=== PATIENT | male | born 1940 | race Caucasian/White ===

== ENCOUNTER 2018-12-09 12:33 | Inpatient (IN) | payer OTHER, SELFPAY ==
[2018-12-09] VITALS (22 sets, daily range): BP systolic 97–195; BP diastolic 49–76; PULSE 65–106; RESP 7–28; TEMP 37.7–40.5; O2SAT 3–96
--- NOTE | 2018-12-09 13:04 | W.ED.GENAD ---
Discharge Plan Disposition Condition: Critical Discharge Details Chief Complaint: RespSymp Reason For Visit: PNEUMONIA Admit Date/Time: 12/09/18 18:18 Admit Provider: Tre Mcneal Attending Provider: Tre Mcneal Primary Care Provider: Ashleigh,[facility] ED Provider: Ca Palencia Discharge Instructions Activity:: bedrest Diet:: NPO Discharge Orders Discharge Orders: Discharge Order (Routine); Ordered 12/11/18 Ordered By: Rosa M Argueta Discharge Data Discharge Date/Time-TO BE ENTERED AT DEPARTURE: 12/09/18 20:01 Medical Decision Making Philip Whiteside is a 78-year-old man with a history of 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 chemotherapy, hypertension, hyperlipidemia presenting to the emergency department with 3 days of chills, sore throat, cough, and loss of voice. On exam patient appears somewhat uncomfortable. He is hoarse but otherwise conversing normally. Lungs with coarse breath sounds throughout. Posterior pharynx is mildly erythematous. Concern for strep throat versus influenza versus pneumonia less likely epiglottitis, retropharyngeal abscess given immune compromised state, other. Doubt PE. Exam/history not consistent with acute coronary syndrome. Plan for chest x-ray, screening labs, flu swab, rapid strep, IV fluid hydration, CT scan neck. Chest x-ray not definitive. No priors in system, no priors at [facility]. Plan for CT neck, CT chest. Flu neg. Patient now febrile. Plan for empiric abx treatment for pneumonia, no recent hospitalizations. Imaging pending. CT shows PNA. Plan for admission. Pt reporting that he feels unchanged, however Pt with RR in low 20s which is increased from prior. Will repeat duoneb. Concern for possible increased O2 demand overnight, plan for admission to ICU. Medical Records Medical records reviewed: Yes I reviewed the patient's medical records. Imaging Data Radiologic Study: Attestation: I personally reviewed and interpreted this imaging study as follows: Radiologist's impression: CT OF THE NECK: A small mucous retention cyst is seen in the right maxillary sinus. No tonsillar enlargement is seen. The epiglottis is unremarkable. There is no retropharyngeal abscess or fluid collection. The thyroid, submandibular and parotid glands are unremarkable. Small cervical lymph nodes are seen, not pathologically enlarged. IMPRESSION: Sinus disease. No acute abnormality. CHEST CT FOR PULMONARY EMBOLISM: CT angiography was performed with multi slice acquisition and multi planar and 3D reconstruction. The exam is limited by respiratory motion. There are small bilateral pleural effusions, right greater than left. There is increased densities at the left lung base which could represent pneumonia. Other densities are seen in the right middle lobe which could represent atelectasis vs infiltrate. Dependent changes are seen in the right lung base. There is a mass in the right perihilar region measuring 3.5 cm. The patient has a history of lung cancer. No pulmonary emboli or aortic dissection is seen. Atherosclerotic changes are noted in the thoracic aorta. The heart is enlarged, particularly left atrium and left ventricle. Large abnormal liver lesions are seen consistent with metastatic disease. A cyst is noted at the upper pole of the right kidney. The adrenals are unremarkable but not fully included on the exam. IMPRESSION: No evidence of pulmonary emboli. There is a question of a left lower lobe infiltrate. There are small bilateral pleural effusions. A left perihilar mass is noted. Liver metastases are seen. Lab Data Lab results reviewed: Yes I reviewed the patient's lab results. HPI General Mode of arrival: ambulatory. Date/Time Provider Initiated Documentation: 12/09/18 13:04. Limitations to Documentation: no limitations. Information obtained by: patient, family, RN notes reviewed and old records reviewed. HPI Narrative: Philip Whiteside is a 78 y/o man with history of primary lung cancer cancer metastatic to the liver, hypertension, high cholesterol presenting to the emergency department with sore throat, cough. Patient reports that 3 days ago he developed sore throat with loss of voice (laryngitis) and intermittent chills. He has also had productive cough. Patient reports that he feels that he needs to cough up phlegm all the time, but is unable to because his throat hurts. He has pain with swallowing, but has been able to swallow. Has not had any drooling. Has been able to lie flat at home without issue. He has had no other pain, no fevers, no nausea/vomiting/diarrhea, no shortness of breath. Patient is currently receiving p.o. chemotherapy for lung cancer. No other recent illnesses, no recent travel. Related Data Home Medications Medication Instructions Recorded Confirmed albuterol sulfate 2.5 mg UPD Q2H PRN PRN #0 ml 12/11/18 cefepime 2 gm IV Q24H #1 each 12/11/18 enoxaparin [Lovenox] 30 mg SUBCUT Q24H #0 ml 12/11/18 fluconazole in NaCl (iso-osm) 100 mg IV Q24H #50 ml 12/11/18 ipratropium-albuterol 3 ml UPD Q6H PRN PRN #0 ml 12/11/18 levofloxacin 250 mg PO Q48H #100 ml 12/11/18 methylprednisolone sod suc(PF) 60 mg IVP Q6H #0 ea 12/11/18 [Solu-Medrol (PF)] norepinephrine bitartrate-D5W See Rx Instructions .ROUTE 12/11/18 .COMPLEX #6000 ml oseltamivir [Tamiflu] 30 mg FEEDING TUBE DAILY #0 cap 12/11/18 pantoprazole [Protonix] 40 mg IVP Q24H #0 ea 12/11/18 vancomycin in 0.9 % sodium chl 1 gm IV Q18H #1200 ml 12/11/18 Previous Rx's Medication Instructions Recorded albuterol sulfate 2.5 mg UPD Q2H PRN PRN #0 ml 12/11/18 cefepime 2 gm IV Q24H #1 each 12/11/18 enoxaparin [Lovenox] 30 mg SUBCUT Q24H #0 ml 12/11/18 fluconazole in NaCl (iso-osm) 100 mg IV Q24H #50 ml 12/11/18 ipratropium-albuterol 3 ml UPD Q6H PRN PRN #0 ml 12/11/18 levofloxacin 250 mg PO Q48H #100 ml 12/11/18 methylprednisolone sod suc(PF) 60 mg IVP Q6H #0 ea 12/11/18 [Solu-Medrol (PF)] norepinephrine bitartrate-D5W See Rx Instructions .ROUTE 12/11/18 .COMPLEX #6000 ml oseltamivir [Tamiflu] 30 mg FEEDING TUBE DAILY #0 cap 12/11/18 pantoprazole [Protonix] 40 mg IVP Q24H #0 ea 12/11/18 vancomycin in 0.9 % sodium chl 1 gm IV Q18H #1200 ml 12/11/18 Allergies Allergy/AdvReac Type Severity Reaction Status Date / Time No Known Allergies Allergy Unverified 06/07/17 10:28 Review of Systems Review of Systems Constitutional: denies fevers, reports chills Eyes: denies eye pain ENT: denies facial pain, dental pain, reports sore throat Cardiovascular: denies chest pain, edema Respiratory: denies SOB, reports cough GI: denies abdominal pain, vomiting, diarrhea : denies flank pain MSK: denies back pain, neck pain, arthralgias, myalgias Skin: denies rash Neuro: denies headaches, numbness, weakness PFSH Medical History Prostate cancer (Inactive) Liver metastasis (Chronic) Neuroendocrine cancer (Chronic) Gout (Chronic) Essential hypertension (Chronic) Peripheral neuropathy (Chronic) Hyperlipidemia (Chronic) Atherosclerotic peripheral vascular disease (Chronic) Surgical History S/P prostatectomy (Resolved) Social History marital status: lives independently: Yes Smoking/Tobacco Use Status: Never alcohol intake: current alcohol intake frequency: 0-2 drinks per day Alcohol type: wine Exam Narrative Exam Narrative: Constitutional: [id number], pleasant, conversing normally but with a hoarse voice HENT: head atraumatic, normocephalic normal inspection, mucous membranes moist, mild erythema of the posterior pharynx, no intraoral lesion or edema, hoarse voice. Eyes: conjunctiva normal, sclera normal, pupils 3mm b/l Neck: no stridor, normal ROM, trachea midline Chest: normal inspection Resp: normal work of breathing, coarse breath sounds throughout Cardio: normal rate, normal rhythm, no murmur appreciated Back: normal inspection, no rash Skin: warm, dry, normal color, no rash Neuro: alert, not altered, grossly non-focal, normal tone Ext: no edema, no posterior calf tenderness Psych: normal mood, normal affect, normal behavior
--- NOTE | 2018-12-09 13:20 | DI.RAD_ITS ---
SYMPTOMS/DIAGNOSIS: COUGH CHEST X-RAY, PA AND LATERAL: No priors. Cardiac silhouette is at the upper limits of normal. Pulmonary vasculature is within normal limits. There is an opacity seen in the right perihilar region. The lungs are otherwise clear. There is blunting of the posterior costophrenic angle suggesting small effusion. The lungs appear hyperinflated suggesting underlying COPD. Degenerative changes are seen in the spine. IMPRESSION: Opacity in the right perihilar region. The patient has a known carcinoma. This area may represent the patient's known carcinoma. Rounded atelectasis or pneumonia cannot be excluded. Comparison with prior films is recommended. Alternatively, a CT scan of the chest with contrast may be obtained. The findings were discussed with Dr. Ca Palencia of the Emergency Department on the date of the examination.
[2018-12-09 13:50] LABS: Lactate-non-spesis 1.9 mmol/L (0.6-1.4)
[2018-12-09 13:53] LABS: Abs Immature Grans 0.03 k/cumm (0.0-0.09); Absolute Basophil Count 0.03 k/cumm (0.0-0.2); Absolute Eosinophil Count 0.06 k/cumm (0.0-0.7); Absolute Lymphocyte Count 1.82 k/cumm (1.2-3.4); Absolute Monocyte Count 0.65 k/cumm (0.11-0.7); Absolute Neutrophil Count 5.78 k/cumm (1.2-6.7); Basophils % 0.4; Eosinophils % 0.7; HCT 39.4 % (40.0-50.0); Immature Grans % 0.4; Lymphocytes % 21.7; Mean Corpuscular Hemoglobin 29.1 pg (27.0-33.0); Mean Corpuscular Volume 88.1 fL (80-95); Mean Platelet Volume 10.1 fL (8.0-11.0); Monocytes % 7.8; Platelet Count 154 x1000/uL (130-400); RBC 4.47 m/cumm (4.50-6.00); RBC Distribution Width 15.2 % (11.8-14.1); White Blood Cell Count 8.37 k/cumm (4.4-10.8)
[2018-12-09 14:05] LABS: ALT 42 U/L (12-78); AST 39 U/L (15-37); Albumin 3.8 g/dL (3.4-5.0); Alkaline Phosphatase 214 U/L (46-116); Anion Gap 9.2 mmol/L (3-11); BUN 12 mg/dL (7-18); Bilirubin, Total 0.6 mg/dL (0.2-1.0); CO2 27.8 mmol/L (21.0-32.0); CREATININE 1.29 mg/dL (0.70-1.30); Calcium 9.5 mg/dL (8.5-10.1); Chloride 101 mmol/L (98-107); Estimated GFR 53.73 (mL/min/1.73m2); Glucose 152 mg/dL (70-100); Potassium 3.8 mmol/L (3.5-5.1); Sodium 138 mmol/L (136-145)
--- NOTE | 2018-12-09 14:20 | NUR.NOTE ---
patient to DI Nursing Note:
[2018-12-09] MEDS: Acetaminophen 500 MG TAB 1000 MG PO (14:36)
[2018-12-09] MEDS: Normal Saline 500 ML IV (14:37)
--- NOTE | 2018-12-09 14:42 | NUR.NOTE ---
patient returned from DI, patient medicated per MD order Nursing Note:
--- NOTE | 2018-12-09 14:47 | NUR.NOTE ---
2lpmnc placed on patient Nursing Note:
[2018-12-09 15:53] LABS: Bilirubin Negative (Negative); Blood Trace-lysed (Negative); Clarity Clear; Glucose Negative (Negative); Ketones Negative (Negative); Leukocyte Esterase Negative (Negative); Nitrite Negative (Negative); Specific Gravity >= 1.030 (1.005-1.025); Urobilinogen 0.2 EU/dL (Up TO 0.2); pH 5.5 (5-8)
[2018-12-09] MEDS: CEFEPIME 2 GM in Normal Saline 100 ML IVPB (16:03)
[2018-12-09] MEDS: Ibuprofen 600 MG TAB (16:04)
[2018-12-09 16:05] LABS: Bacteria Rare HPF (Negative); C & S Indicated? No; Casts Negative LPF (Negative); Crystals Negative HPF (Negative); Epithelial Cells Rare HPF (Negative); Mucus Trace (Negative); RBC 0-2 (0-2); WBC 0-2 HPF (0-5)
--- NOTE | 2018-12-09 16:06 | NUR.NOTE ---
patient medicated per MD order Nursing Note:
--- NOTE | 2018-12-09 17:12 | DI.CT_ITS ---
SYMPTOMS/DIAGNOSIS: SORE THROAT, PAINFUL SWALLOWING, COUGH, H/O LUNG CANCER CT OF THE NECK: A small mucous retention cyst is seen in the right maxillary sinus. No tonsillar enlargement is seen. The epiglottis is unremarkable. There is no retropharyngeal abscess or fluid collection. The thyroid, submandibular and parotid glands are unremarkable. Small cervical lymph nodes are seen, not pathologically enlarged. IMPRESSION: Sinus disease. No acute abnormality. CHEST CT FOR PULMONARY EMBOLISM: CT angiography was performed with multi slice acquisition and multi planar and 3D reconstruction. The exam is limited by respiratory motion. There are small bilateral pleural effusions, right greater than left. There is increased densities at the left lung base which could represent pneumonia. Other densities are seen in the right middle lobe which could represent atelectasis vs infiltrate. Dependent changes are seen in the right lung base. There is a mass in the right perihilar region measuring 3.5 cm. The patient has a history of lung cancer. No pulmonary emboli or aortic dissection is seen. Atherosclerotic changes are noted in the thoracic aorta. The heart is enlarged, particularly left atrium and left ventricle. Large abnormal liver lesions are seen consistent with metastatic disease. A cyst is noted at the upper pole of the right kidney. The adrenals are unremarkable but not fully included on the exam. IMPRESSION: No evidence of pulmonary emboli. There is a question of a left lower lobe infiltrate. There are small bilateral pleural effusions. A left perihilar mass is noted. Liver metastases are seen.
[2018-12-09] MEDS: Omnipaque 350 MG/ML 100 ML BTL IJ (17:15)
[2018-12-09] MEDS: Omnipaque 350 MG/ML 50 ML BTL IJ (17:16)
[2018-12-09] MEDS: VANCOMYCIN 2,000 MG in Normal Saline 500 ML 250 MG IVPB (17:20)
--- NOTE | 2018-12-09 17:21 | NUR.NOTE ---
patient drwisy responmds to verbal stimuli, patient receiving antibiotics. Nursing Note:
--- NOTE | 2018-12-09 17:40 | DI.VRAD_ITS ---
EXAM: CT Neck With Contrast EXAM DATE/TIME: 12/09/2018 2:56 PM CLINICAL HISTORY: 78 years old, male; Pain; Painful swallowing and throat pain; Patient HX: H/o lung cancer TECHNIQUE: Axial computed tomography images of the neck with intravenous contrast. Coronal and sagittal reformatted images were created and reviewed. CONTRAST: 50 ml of Omnipaque 350 administered intravenously. COMPARISON: No relevant prior studies available. FINDINGS: Sinuses: Right maxillary sinus mucosal retention cyst/polyp. Oropharynx: Normal. No significant tonsillar enlargement. Larynx: Normal. Normal epiglottis. Submandibular/Parotid glands: Normal. Glands are normal in size. Thyroid: Normal. No enlarged or calcified nodules. Lymph nodes: Precarinal lymph node measuring 9mm. There are multiple bilateral level II lymph nodes measuring less than 1 cm in short axis. Lung apices: Normal as visualized. Vasculature: Atherosclerotic calcification of the aortic arch. Bones/joints: Normal. No acute fracture. Soft tissues: Normal. No significant soft tissue swelling. IMPRESSION: No acute abnormality. Dictated and Authenticated by: Robbi Martinez MD. Ordering:GUILLE Penaloza MD
--- NOTE | 2018-12-09 17:53 | DI.VRAD_ITS ---
EXAM: CT Angiography Chest With Contrast EXAM DATE/TIME: 12/09/2018 2:56 PM CLINICAL HISTORY: 78 years old, male; Signs and symptoms; Cough and other: H/o lung cancer TECHNIQUE: Axial computed tomographic angiography images of the chest with intravenous contrast using CT angiography protocol. Coronal and sagittal reformatted images were created and reviewed. MIP reconstructed images were created and reviewed. CONTRAST: 100 ml of Omnipaque 350 administered intravenously. COMPARISON: CR XR CHEST 2V PA LATERAL 12/09/2018 2:25 PM FINDINGS: Pulmonary arteries: Normal. No pulmonary emboli. Aorta: Normal. No aortic aneurysm. No aortic dissection. Lungs: There is airspace consolidation in the left lung base which may represent infiltrates. Pleural space: small bilateral pleural effusions with atelectasis at bilateral lung bases. Heart: Cardiomegaly. Mediastinum: There is a 3.5 x 2.9 cm mass in the right hilum. Liver: Multiple liver lesions suspicious for metastasis. The largest liver lesion measures 9.5 x 9 cm and the right hepatic lobe. Kidneys and ureters: 3.8 cm cyst in the upper pole of right kidney. Lymph nodes: Unremarkable. No enlarged lymph nodes. Bones/joints: Degenerative changes of the spine. Soft tissues: Unremarkable. IMPRESSION: No pulmonary embolism. Small bilateral pleural effusions with atelectasis at bilateral lung bases. Left lung base infiltrates. Right hilar mass measuring 3.5 x 2.9 cm. Multiple liver metastasis. Dictated and Authenticated by: Robbi Martinez MD. Ordering:GUILLE Penaloza MD
[2018-12-09] MEDS: Normal Saline Flush 10 ML SYR IVP ×2 (20:20→21:56)
[2018-12-09] MEDS: Lactated Ringers 1,000 ML 150 ML IV (20:27)
[2018-12-09] MEDS: Gabapentin 300 MG CAP 1200 MG PO (20:28)
[2018-12-09] MEDS: Enoxaparin 40 MG/0.4 ML SYR SC (20:29)
[2018-12-09] MEDS: AZITHROMYCIN 500 MG in Normal Saline 250 ML 250 MG IVPB (20:48)
[2018-12-09 20:56] LABS: Lactate-non-spesis 0.8 mmol/L (0.6-1.4)
--- NOTE | 2018-12-09 21:31 | W.PM.HP.N ---
Date of service: 12/09/18 Time of Service: 21:31 Assessment and Plan (1) Community acquired pneumonia: Current visit: Yes Status: Acute broad spectrum antibiotics w/ Cefepime and Azithromycin, aerosolized bronchodilators, mucinex to assist w/ expectoration of mucous, use of Acapella to assist w/ mobilization of mucous; will give short course of iv corticosteroids for severe CAP (per recent guidelines in Surviving Sepsis campaign). 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 Patient has had this diagnosis for 4 years and currently receives treatment by his oncologist at the [facility] in [facility]. Patient and his have a vacation home here in [place]. He came down ill 3 days ago with chills and a cough along with a sore throat. He has had fever with rigors for the last 2 days and his cough got worse to the point that he is dyspneic even at rest. His cough is productive of purulent mucus but no hemoptysis. He denies any nausea or vomiting or diarrhea or abdominal complaints nor any urinary tract symptoms. Because of his odynophagia and sore throat and hoarseness he underwent a CT scan of his neck and because of his dyspnea and cough he underwent a chest x-ray and a CT scan of his chest. CTA of his chest showed no pulmonary embolism but he has small bilateral pleural effusions with atelectasis at both lung bases as well as left lung basilar infiltrates as well as a right hilar mass measuring 3.5 x 2.9 cm and multiple liver metastasis. CT scan of his neck with contrast showed no acute abnormalities. Dr. Malissa Palencia evaluated and treated the patient in the emergency room and gave him IV fluids and obtain blood cultures and start broad-spectrum antibiotics including cefepime and vancomycin. Patient reports that he is up-to-date on his immunizations including his Pneumovax as well as his influenza vaccine. Laboratory workup today included CBC which did not show a leukocytosis and no neutropenia. His total white blood cell count was 8370 with an absolute neutrophil count of 5780. He has a mild anemia with hemoglobin of 13 g and hematocrit 39%. His CMP showed normal BUN and creatinine of 12 and 1.29 respectively but an elevated glucose of 152. AST was slightly elevated at 39 and alkaline phosphatase was elevated at 214. Urinalysis was remarkable for 100 mg/dL protein and increased specific gravity greater than 1.030. He had no leukocyte esterase and rare bacteria. He is now admitted to the medical/surgical floor for continued IV fluids and broad-spectrum antibiotics. Per Hdz guidelines he will be continued on cefepime and azithromycin has been added to his regimen. There is no indication for continued use of vancomycin at this point. Other pertinent past medical history includes peripheral arterial vascular disease for which he takes Pletal and Plavix. He denies a coronary artery disease nor any history of congestive heart failure or myocardial infarction. He denies COPD and has never smoked. He has essential hypertension for which he takes metoprolol succinate as well as lisinopril. Over the past year his lisinopril dose has been gradually reduced from 40 mg daily down to 5 mg daily because of problems with hypotension. Review of Systems Constitutional Reports body ache(s), Reports chills, Reports excessive sweating, Reports fever(s) and Reports poor appetite Eyes Reports system reviewed and no additional complaints, except as docu ENT Reports dry mouth, Reports hoarseness, Reports odynophagia and Reports sore throat Cardiovascular Reports system reviewed and no additional complaints, except as docu and Reports dyspnea Respiratory Reports as per HPI, Reports change in phlegm color, Reports chest congestion, Reports cough, Denies hemoptysis, Reports excessive phlegm production and Reports dyspnea Gastrointestinal Reports system reviewed and no additional complaints, except as docu and Reports odynophagia Genitourinary Reports system reviewed and no additional complaints, except as docu Musculoskeletal Reports numbness (both feet w/ painful tingling/burning) and Reports tingling Integumentary/Breasts Reports system reviewed and no additional complaints, except as docu Neurologic Reports numbness (both feet w/ painful tingling/burning), Reports tingling and Reports paresthesias Psychiatric Reports system reviewed and no additional complaints, except as docu Endocrine Reports system reviewed and no additional complaints, except as docu and Reports excessive sweating Hematologic/Lymphatic Reports system reviewed and no additional complaints, except as docu Allergic/Immunologic Reports system reviewed and no additional complaints, except as docu PFSH Medical History Prostate cancer (Inactive) Liver metastasis (Chronic) Neuroendocrine cancer (Chronic) Gout (Chronic) Essential hypertension (Chronic) Peripheral neuropathy (Chronic) Hyperlipidemia (Chronic) Atherosclerotic peripheral vascular disease (Chronic) Surgical History S/P prostatectomy (Resolved) Social History marital status: lives independently: Yes Smoking/Tobacco Use Status: Never alcohol intake: current alcohol intake frequency: 0-2 drinks per day Alcohol type: wine Meds Home Medications Medication Instructions Recorded Confirmed Type allopurinol 675 mg PO DAILY 06/07/17 12/09/18 History cilostazol 100 mg PO BID 06/07/17 12/09/18 History clonazepam 2 mg PO HS 06/07/17 12/09/18 History gabapentin 1,200 mg PO BID 06/07/17 12/09/18 History lisinopril 5 mg PO DAILY 06/07/17 12/09/18 History simvastatin 40 mg PO DAILY 06/07/17 12/09/18 History clopidogrel [Plavix] 75 mg PO DAILY 12/09/18 12/09/18 History colchicine 0.6 mg PO DAILY 12/09/18 12/09/18 History everolimus (antineoplastic) 10 mg PO DAILY 12/09/18 12/09/18 History [Afinitor] metoprolol succinate 25 mg PO DIRECTED 12/09/18 12/09/18 History Allergies Allergy/AdvReac Type Severity Reaction Status Date / Time No Known Allergies Allergy Unverified 06/07/17 10:28 Exam Const General: cooperative, no acute distress and ill appearing acutely Nutritional Appearance: overweight Orientation: alert, awake and oriented x3 HENMT Head: normal to inspection, normocephalic and atraumatic Ears: EAC abnormal excessive cerumen bilaterally General nose exam: external nose normal, nares normal, nasal mucous membranes and turbinates normal and no nasal discharge Face and sinus: dry mucous membranes Mouth: oropharynx normal (no exudates) and malodorous breath Throat: posterior oropharynx normal Eyes General: appearance normal, both eyes and all related structures Visual Clark: normal visual clark by confrontation Eyelids: eyelids normal Conjunctivae: conjunctivae normal Sclera: sclerae normal Cornea: corneas normal Pupils: PERRL EOM: EOM intact bilaterally Neck Neck: normal visual inspection, full ROM, no lymphadenopathy, trachea midline, supple and no JVD Carotids: normal carotid upstroke Lymphatic: no lymphadenopathy noted Chest Chest: normal inspection of the chest and normal palpation of entire chest wall Resp Effort & Inspection: able to speak in complete sentences and tachypneic Auscultation: bronchovesicular breath sounds bilaterally Cardio Jugular venous pressure: no JVD Palpation: normal PMI Rate: regular rate Rhythm: regular rhythm Heart Sounds: S1 normal, S2 normal and normal, physiologic split S2 Bruits: no abdominal aortic bruits and no carotid bruits Pulses: posterior tibial pulses present bilaterally 1+ and diminished and dorsalis pedis pulses present bilaterally 1+ and diminished GI Inspection: normal to inspection and obesity Palpation: soft, no hepatosplenomegaly, no guarding and nontender Percussion: normal to percussion Auscultation: normal bowel sounds Back/Spine/Pelvis Back: no CVA tenderness Cervical Spine: cervical ROM normal Thoracic/Lumbar Spine: thoracic and lumbar spine normal to inspection Skin General skin exam: no rashes or lesions noted and dry skin Hair: other (loss of hair over dorsum both feet) Neuro General: alert, awake, oriented x3, moves all extremities and no focal motor deficits Cognition: normal cognition Speech: speech normal Extrem General: full ROM and no clubbing, cyanosis or edema Psych Appearance: grossly normal Mental Status: mental status grossly normal Speech and Movement: speech and movement normal Mood: congruent mood Affect: normal affect Attitude: cooperative Thought Process: normal Thought Content: normal Insight: insight good Judgment: judgment good Results Imaging CT scan - chest: report reviewed (IMPRESSION: No pulmonary embolism. Small bilateral pleural effusions with atelectasis at bilateral lung bases. Left lung base infiltrates. Right hilar mass measuring 3.5 x 2.9 cm. Multiple liver metastasis. Dictated and Authenticated by: Robbi Martinez MD.) Additional studies: CT neck w/ contrast: FINDINGS: Sinuses: Right maxillary sinus mucosal retention cyst/polyp. Oropharynx: Normal. No significant tonsillar enlargement. Larynx: Normal. Normal epiglottis. Submandibular/Parotid glands: Normal. Glands are normal in size. Thyroid: Normal. No enlarged or calcified nodules. Lymph nodes: Precarinal lymph node measuring 9mm. There are multiple bilateral level II lymph nodes measuring less than 1 cm in short axis. Lung apices: Normal as visualized. Vasculature: Atherosclerotic calcification of the aortic arch. Bones/joints: Normal. No acute fracture. Soft tissues: Normal. No significant soft tissue swelling. IMPRESSION: No acute abnormality. Dictated and Authenticated by: Robbi Martinez MD. Labs : 12/09/18 13:30 12/09/18 13:30 Laboratory Results - last 24 hr 12/09/18 12/09/18 12/09/18 13:30 13:30 13:30 WBC 8.37 RBC 4.47 L Hgb 13.0 L Hct 39.4 L MCV 88.1 MCH 29.1 MCHC 33.0 RDW 15.2 H Plt Count 154 MPV 10.1 Immature Gran % 0.4 Neutrophils % 69.0 Lymphocytes % 21.7 Monocytes % 7.8 Eosinophils % 0.7 Basophils % 0.4 Absolute Neutrophils 5.78 Absolute Lymphocytes 1.82 Absolute Monocytes 0.65 Absolute Eosinophils 0.06 Absolute Basophils 0.03 Sodium 138 Potassium 3.8 Chloride 101 Carbon Dioxide 27.8 Anion Gap 9.2 BUN 12 Creatinine 1.29 Estimated GFR/1.73 m2 53.73 Glucose 152 H Lactate 1.9 H Calcium 9.5 Total Bilirubin 0.6 AST 39 H ALT 42 Alkaline Phosphatase 214 H Total Protein 8.0 Albumin 3.8 Urine Color Urine Clarity Urine pH Ur Specific Temple Urine Protein Urine Ketones Urine Blood Urine Nitrite Urine Bilirubin Urine Urobilinogen Ur Leukocyte Esterase Urine RBC Urine WBC Ur Epithelial Cells Urine Crystals Urine Bacteria Urine Casts Urine Mucus Ur Culture Indicated? Urine Glucose 12/09/18 12/09/18 15:45 20:48 WBC RBC Hgb Hct MCV MCH MCHC RDW Plt Count MPV Immature Gran % Neutrophils % Lymphocytes % Monocytes % Eosinophils % Basophils % Absolute Neutrophils Absolute Lymphocytes Absolute Monocytes Absolute Eosinophils Absolute Basophils Sodium Potassium Chloride Carbon Dioxide Anion Gap BUN Creatinine Estimated GFR/1.73 m2 Glucose Lactate 0.8 Calcium Total Bilirubin AST ALT Alkaline Phosphatase Total Protein Albumin Urine Color Yellow Urine Clarity Clear Urine pH 5.5 Ur Specific Temple >= 1.030 H Urine Protein 100 H Urine Ketones Negative Urine Blood Trace-lysed H Urine Nitrite Negative Urine Bilirubin Negative Urine Urobilinogen 0.2 Ur Leukocyte Esterase Negative Urine RBC 0-2 Urine WBC 0-2 Ur Epithelial Cells Rare Urine Crystals Negative Urine Bacteria Rare Urine Casts Negative Urine Mucus Trace Ur Culture Indicated? No Urine Glucose Negative Last Vital Signs Temp 38.6 C H 12/09/18 20:34 Pulse 81 12/09/18 20:34 Resp 26 H 12/09/18 20:34 BP 113/59 L 12/09/18 20:34 Pulse Ox 96 12/09/18 20:34
[2018-12-09] MEDS: Hydrocortisone SOD SUC. 100 MG VIAL 50 MG IVP (21:56)
[2018-12-09] MEDS: Acetaminophen 325 MG TAB PO (22:00)
[2018-12-09] MEDS: clonazePAM 1 MG TAB 2 MG PO (22:01)
[2018-12-09] MEDS: Simvastatin 20 MG TAB 40 MG PO (22:02)
[2018-12-09] MEDS: guaiFENesin 600 MG TABCR 1200 MG PO (22:26)
[2018-12-09] MEDS: Albuterol/Ipratropium 3 ML UPD VIAL UPD (22:53)
[2018-12-10] VITALS (59 sets, daily range): BP systolic 86–150; BP diastolic 34–113; PULSE 70–112; RESP 15–31; TEMP 34–40.4; O2SAT 80–95
[2018-12-10] MEDS: CEFEPIME 2 GM in Normal Saline 100 ML IVPB ×3 (01:12→17:38)
[2018-12-10] MEDS: Hydrocortisone SOD SUC. 100 MG VIAL 50 MG IVP ×4 (04:18→22:00)
[2018-12-10] MEDS: Normal Saline Flush 10 ML SYR IVP ×3 (04:19→16:14)
[2018-12-10] MEDS: Albuterol 2.5 MG/3 ML INH SOLN VIAL UPD (04:30)
[2018-12-10] MEDS: Acetaminophen 325 MG TAB PO ×3 (04:45→16:14)
[2018-12-10] MEDS: Lactated Ringers 1,000 ML 150 ML IV (05:03)
[2018-12-10 07:34] LABS: Abs Immature Grans 0.01 k/cumm (0.0-0.09); Absolute Basophil Count 0.01 k/cumm (0.0-0.2); Absolute Lymphocyte Count 1.01 k/cumm (1.2-3.4); Absolute Monocyte Count 0.83 k/cumm (0.11-0.7); Absolute Neutrophil Count 4.97 k/cumm (1.2-6.7); Basophils % 0.1; HCT 34.5 % (40.0-50.0); HGB 11.1 g/dL (13.5-17.5); Immature Grans % 0.1; Lymphocytes % 14.8; Mean Corp. HGB Concentration 32.2 g/dL (32.0-36.0); Mean Corpuscular Hemoglobin 28.5 pg (27.0-33.0); Mean Corpuscular Volume 88.5 fL (80-95); Mean Platelet Volume 10.4 fL (8.0-11.0); Monocytes % 12.2; Neutrophils % 72.8; Platelet Count 131 x1000/uL (130-400); RBC Distribution Width 15.3 % (11.8-14.1); White Blood Cell Count 6.83 k/cumm (4.4-10.8)
[2018-12-10 07:48] LABS: Anion Gap 13.6 mmol/L (3-11); BUN 20 mg/dL (7-18); CO2 21.4 mmol/L (21.0-32.0); CREATININE 1.71 mg/dL (0.70-1.30); Calcium 8.1 mg/dL (8.5-10.1); Chloride 104 mmol/L (98-107); Estimated GFR 38.81 (mL/min/1.73m2); Glucose 244 mg/dL (70-100); Magnesium 1.5 mg/dL (1.8-2.4); Potassium 3.3 mmol/L (3.5-5.1); Sodium 139 mmol/L (136-145)
[2018-12-10 07:55] LABS: Hemoglobin A1C 7.4 % (4.5-6.2)
[2018-12-10] MEDS: Clopidogrel 75 MG TAB PO (09:13)
[2018-12-10] MEDS: guaiFENesin 600 MG TABCR 1200 MG PO ×2 (09:14→19:41)
[2018-12-10] MEDS: Lisinopril 5 MG TAB PO (09:14)
[2018-12-10] MEDS: Metoprolol CR 25 MG TABCR 50 MG PO (09:14)
[2018-12-10] MEDS: Colchicine 0.6 MG TAB PO (09:14)
[2018-12-10] MEDS: Gabapentin 300 MG CAP 1200 MG PO ×2 (09:14→19:41)
--- NOTE | 2018-12-10 10:04 | DI.RAD_ITS ---
SYMPTOMS/DIAGNOSIS: WORSENING HYPOXIA PORTABLE CHEST: Comparison is made with 19. The exam is limited due to patient positioning, respiratory motion and poor pulmonary inflation. Leads overlie the chest. There are increased densities at both lung bases representing atelectasis. Infiltrates can not be distinguished from atelectasis. The heart is again noted to be enlarged. There is again blunting at the right costophrenic angle. IMPRESSION: Limited exam. Bibasilar infiltrates and/or atelectasis.
--- NOTE | 2018-12-10 11:27 | PHARADMIT ---
Admission Pharmacy Clinical Review Pneumonia Code Status Full Code Current Weight Wgt-89.7 kg Renally Cleared and Narrow Therapeutic Index Meds CrCl~ 35 mL/min Meds-OK QTc Value / Action Taken none BP Control, Fever BP- 108/59 Tmax- 39.8C Electrolytes reviewed Na- 139 K+3.3 Mag-1.5 DVT Prophylaxis Lovenox, Plavix Opiate Usage / Scheduled Bowel Regimen Ordered No Yes Plt/SCr for Heparin / Enoxaparin Plts- 131 SCr-1.71 INR for Warfarin na H/H stable, WBC/Bands H&H- 11.1/34.5 WBC- 6.83 Antibiotic appropriateness Azithromycin, Cefepime, Vancomycin Cultures and Sensitivities Blood-pending Recheck Flu Surgical ABX d/c within 24 hr na DM control / Insulin Dosing BG-244 [id number] Heart Failure (Check EF%) (LESTER's, B-Block, Diuretics) Lisinopril, Toprol-XL, IV to PO Switch No Home Meds Reviewed Yes Home Meds Not Ordered PatOwn Cilostazol): Afininitor Comments ? regarding: HELD ALLOPURINOL dose of 675mg, called nursing to investigate
[2018-12-10] MEDS: Oseltamivir 75 MG CAP PO ×2 (11:55→19:41)
[2018-12-10] MEDS: Lactated Ringers 1,000 ML 75 ML IV (12:31)
[2018-12-10] MEDS: MAGNESIUM SULFATE 4 GM/100 ML BAG IVPB (12:31)
--- NOTE | 2018-12-10 12:33 | PDOC.CMIN ---
- If Service Date Differs Date of service: 12/10/18 Time of Service: 12:33 Care Management Initial Assess REASON FOR HOSPITALIZATION:: Pneumonia. PAST MEDICAL HISTORY/PAST SURGICAL HISTORY:: Atherosclerotic peripheral vascular disease, essential HTN, gout, hyperlipidemia, neuroendocrine CA (w/ liver mets), peripheral neuropathy, prostate CA. Surgical hx: protatectomy. PREVIOUS FUNCTIONAL STATUS/SOCIAL/FAMILY SUPPORTS:: Marjan resides approximately 3/4 of the time at his home in [place]. He has resided most of his time in [place] since 1999. He is originally from [place] and continues to receive his medical care there. His oncologist and PCP are both in the [place], [place] area. Marjan has been for 40 years to his , Corrine. He worked for years in the healthcare field, managing clinical labs. Marjan has adult children who are not local but whom visit [place] on ocassion. He is independent with his ADLs though reports that Corrine takes care of his medication administration. CURRENT FUNCTIONAL STATUS:: Marjan is lying in bed when CM visits this afternoon. He has just been transferred from the MS floor to the ICU due to his increased need for supplemental oxygen and his temperature of 39.8. Marjan's initial flu swab returned negative, however he is being treated prophylactically due to his symptoms and is on precautions. Marjan reports that he is worried about his , Corrine, who left the hospital earlier this morning for breakfast and has not returned. Marjan reports that she does not like driving in the snow and he is worried that if she gets stuck in a snowbank she will not know what to do. CM phoned Corrine's cell and left a VM. CM will continue to follow up and keep Marjan apprised. Marjan is receiving supplemental O2 via oxy mask and is scheduled for an xray and chest CT today. ADVANCE DIRECTIVES:: None on file at [facility]. Has patient been provided with information about the portal?: No Did the patient sign up for the portal?: No CODE STATUS:: Full Code INSURANCE COVERAGE / FINANCIAL ISSUES:: [employer] Plan. CURRENT HOME/COMMUNITY SERVICES/EQUIPMENT:: No home or community services. CPAP. Cane; used for ambulation on ocassion. PRIMARY CARE PHYSICIAN:: None local. Patient's PCP is in [place]. He has resided 3/4 time in [place], [place] since 1999. Patient is not interested in establishing a PCP locally at this time. POTENTIAL DISCHARGE NEEDS:: Follow up appointment with his PCP in [place]. PATIENT/FAMILY EDUCATION NEEDS:: Discharge education, any limitations, and follow up plan of care. Ask Me Three discussion. ANTICIPATED BARRIERS TO DISCHARGE:: No anticipated barriers to discharge. TRANSPORTATION:: Marjan will transport via private vehicle with his , Corrine. PLAN:: Marjan will discharge home when medically ready per MD. Anticipate patient will discharge with no services and follow up with his PCP and oncologist. CM will continue to offer support to patient, family, and care team regarding discharge planning and dispositon.
[2018-12-10] MEDS: VANCOMYCIN 1,000 MG in Normal Saline 250 ML 166.667 MG IVPB (12:39)
--- NOTE | 2018-12-10 13:07 | INITIAL_ITS ---
- If Service Date Differs Date of service: 12/10/18 Time of Service: 12:33 Care Management Initial Assess REASON FOR HOSPITALIZATION:: Pneumonia. PAST MEDICAL HISTORY/PAST SURGICAL HISTORY:: Atherosclerotic peripheral vascular disease, essential HTN, gout, hyperlipidemia, neuroendocrine CA (w/ liver mets), peripheral neuropathy, prostate CA. Surgical hx: protatectomy. PREVIOUS FUNCTIONAL STATUS/SOCIAL/FAMILY SUPPORTS:: Marjan resides approximately 3/4 of the time at his home in [place]. He has resided most of his time in [place] since 1999. He is originally from [place] and continues to receive his medical care there. His oncologist and PCP are both in the [place], [place] area. Marjan has been for 40 years to his , Corrine. He worked for years in the healthcare field, managing clinical labs. Marjan has adult children who are not local but whom visit [place] on ocassion. He is independent with his ADLs though reports that Corrine takes care of his medication administration. CURRENT FUNCTIONAL STATUS:: Marjan is lying in bed when CM visits this afternoon. He has just been transferred from the MS floor to the ICU due to his increased need for supplemental oxygen and his temperature of 39.8. Marjan's initial flu swab returned negative, however he is being treated prophylactically due to his symptoms and is on precautions. Marjan reports that he is worried about his , Corrine, who left the hospital earlier this morning for breakfast and has not returned. Marjan reports that she does not like driving in the snow and he is worried that if she gets stuck in a snowbank she will not know what to do. CM phoned Corrine's cell and left a VM. CM will continue to follow up and keep Marjan apprised. Marjan is receiving supplemental O2 via oxy mask and is scheduled for an xray and chest CT today. ADVANCE DIRECTIVES:: None on file at [facility]. Has patient been provided with information about the portal?: No Did the patient sign up for the portal?: No CODE STATUS:: Full Code INSURANCE COVERAGE / FINANCIAL ISSUES:: [employer] Plan. CURRENT HOME/COMMUNITY SERVICES/EQUIPMENT:: No home or community services. CPAP. Cane; used for ambulation on ocassion. PRIMARY CARE PHYSICIAN:: None local. Patient's PCP is in [place]. He has resided 3/4 time in [place], [place] since 1999. Patient is not interested in establishing a PCP locally at this time. POTENTIAL DISCHARGE NEEDS:: Follow up appointment with his PCP in [place]. PATIENT/FAMILY EDUCATION NEEDS:: Discharge education, any limitations, and follow up plan of care. Ask Me Three discussion. ANTICIPATED BARRIERS TO DISCHARGE:: No anticipated barriers to discharge. TRANSPORTATION:: Marjan will transport via private vehicle with his , Corrine. PLAN:: Marjan will discharge home when medically ready per MD. Anticipate patient will discharge with no services and follow up with his PCP and oncologist. CM will continue to offer support to patient, family, and care team regarding discharge planning and dispositon.
[2018-12-10] MEDS: Albuterol/Ipratropium 3 ML UPD VIAL UPD (14:05)
[2018-12-10] MEDS: POTASSIUM CHLORIDE 10 MEQ/100 ML BAG 100 MEQ IVPB ×2 (16:38→18:23)
--- NOTE | 2018-12-10 18:14 | W.PM.PROGNOT ---
Date of Service Date of service: 12/10/18 Time of Service: 11:00 Assessment and Plan (1) Community acquired pneumonia: Current visit: Yes Status: Acute Looks more sick in person than his numbers would suggest. Continue azithromycin, cefepime; agree with addition of vancomycin. I have also empirically covered the patient for the flu. (2) Hypoxia: Current visit: Yes Status: Acute Monitor closely on humidified high flow O2. Treat the process above. (3) Neuroendocrine cancer: Current visit: No Status: Chronic Continue outpatient afinitor. (4) Atherosclerotic peripheral vascular disease: Current visit: No Status: Chronic Stable. Continue outpatient therapy (5) Essential hypertension: Current visit: No Status: Chronic BP better, but still borderline low. Will d/c night time metoprolol. (6) Oropharyngeal candidiasis: Current visit: Yes Status: Acute start fluconazole + nystatin (7) Discharge planning issues: Current visit: Yes Status: Acute Full code Transferred to ICU (8) DVT prophylaxis: Current visit: Yes Status: Acute Lovenox Subjective Interval history since last seen: Patient was transferred to the ICU due to progressively rising oxygen requirement. He complains of sore throat and difficulty swallowing. He denies dizziness, chest pain, shortness of breath, nausea. Exam Narrative Exam Narrative: General: Ill-appearing elderly male, A&Ox3, mildly tachypneic, mildly confused HEENT: EOMI, MMM, evidence of thrush Heart: RRR Lungs: Rhonchi B GI: abdomen soft, nontender, nondistended Extremities: no e/c/c BLE's Objective Objective Clinical Data: Abnormal lab results 12/10/18 12/10/18 12/10/18 Range/Units 07:10 07:10 07:10 RBC 3.90 L (4.50-6.00) m/cumm Hgb 11.1 L (13.5-17.5) g/dL Hct 34.5 L (40.0-50.0) % RDW 15.3 H (11.8-14.1) % Absolute Lymphocytes 1.01 L (1.2-3.4) k/cumm Absolute Monocytes 0.83 H (0.11-0.7) k/cumm Potassium 3.3 L (3.5-5.1) mmol/L Anion Gap 13.6 H (3-11) mmol/L BUN 20 H D (7-18) mg/dL Creatinine 1.71 H (0.70-1.30) mg/dL Glucose 244 H D (70-100) mg/dL Hemoglobin A1c 7.4 H (4.5-6.2) % Calcium 8.1 L (8.5-10.1) mg/dL Magnesium 1.5 L (1.8-2.4) mg/dL Vital Signs Temperature 38.6 C H 12/10/18 17:14 Temperature Source Temporal Artery Scan 12/10/18 13:58 Pulse 89 12/10/18 18:01 Pulse Rhythm Regular 12/10/18 08:55 Pulse 89 12/10/18 18:01 Respiratory Rate 25 H 12/10/18 18:01 Respiratory Effort 12/10/18 12:08 Respiratory Depth Normal 12/10/18 12:08 Respiratory Pattern Normal 12/10/18 12:08 Blood Pressure 104/39 L 12/10/18 18:01 Blood Pressure Mean 55 12/10/18 18:01 Blood Pressure Position Supine 12/10/18 12:08 Pulse Oximetry 88 L 12/10/18 18:01 Oxygen Delivery Method Hi Flow Nasal Cannula 12/10/18 13:58 Oxygen Flow Rate 35 12/10/18 13:58 Fraction of Inspired Oxygen (FIO2) 56 12/10/18 13:58 Pain Level 0 12/10/18 13:58 Intake & Output 12/09/18 12/10/18 12/10/18 23:59 11:59 23:59 Intake Total 305 / 305 3094.00 / 3644.00 550 / 3644.00 Output Total 200 / 400 200 / 400 Balance 305 / 305 2894.00 / 3244.00 350 / 3244.00 Weight 89.8 kg 91.1 kg Intake: IV 305 / 305 3094.00 / 3444.00 350 / 3444.00 Oral 200 / 200 Output: Urine 200 / 200 Stool 150 / 150 Emesis 50 / 50 Other: Urine Color Dark Eliane Urine Appearance Clear Urine Odor Normal Comment large amount inc on bedpad upon transfer to ICU No void at this time. Stool Size Moderate Stool Characteristics Brown Emesis Description Undigested Food Voiding Methods Incontinent Laboratory Results WBC 6.83 k/cumm (4.4-10.8) 12/10/18 07:10 RBC 3.90 m/cumm (4.50-6.00) L 12/10/18 07:10 Hgb 11.1 g/dL (13.5-17.5) L 12/10/18 07:10 Hct 34.5 % (40.0-50.0) L 12/10/18 07:10 MCV 88.5 fL (80-95) 12/10/18 07:10 MCH 28.5 pg (27.0-33.0) 12/10/18 07:10 MCHC 32.2 g/dL (32.0-36.0) 12/10/18 07:10 RDW 15.3 % (11.8-14.1) H 12/10/18 07:10 Plt Count 131 x1000/uL (130-400) 12/10/18 07:10 MPV 10.4 fL (8.0-11.0) 12/10/18 07:10 Immature Gran % 0.1 12/10/18 07:10 Neutrophils % 72.8 12/10/18 07:10 Lymphocytes % 14.8 12/10/18 07:10 Monocytes % 12.2 12/10/18 07:10 Eosinophils % 0.0 12/10/18 07:10 Basophils % 0.1 12/10/18 07:10 Absolute Neutrophils 4.97 k/cumm (1.2-6.7) 12/10/18 07:10 Absolute Lymphocytes 1.01 k/cumm (1.2-3.4) L 12/10/18 07:10 Absolute Monocytes 0.83 k/cumm (0.11-0.7) H 12/10/18 07:10 Absolute Eosinophils 0.00 k/cumm (0.0-0.7) 12/10/18 07:10 Absolute Basophils 0.01 k/cumm (0.0-0.2) 12/10/18 07:10 Sodium 139 mmol/L (136-145) 12/10/18 07:10 Potassium 3.3 mmol/L (3.5-5.1) L 12/10/18 07:10 Chloride 104 mmol/L (98-107) 12/10/18 07:10 Carbon Dioxide 21.4 mmol/L (21.0-32.0) 12/10/18 07:10 Anion Gap 13.6 mmol/L (3-11) H 12/10/18 07:10 BUN 20 mg/dL (7-18) H D 12/10/18 07:10 Creatinine 1.71 mg/dL (0.70-1.30) H 12/10/18 07:10 Estimated GFR/1.73 m2 38.81 (mL/min/1.73m2) 12/10/18 07:10 Glucose 244 mg/dL (70-100) H D 12/10/18 07:10 Hemoglobin A1c 7.4 % (4.5-6.2) H 12/10/18 07:10 Lactate 0.8 mmol/L (0.6-1.4) 12/09/18 20:48 Calcium 8.1 mg/dL (8.5-10.1) L 12/10/18 07:10 Magnesium 1.5 mg/dL (1.8-2.4) L 12/10/18 07:10 Total Bilirubin 0.6 mg/dL (0.2-1.0) 12/09/18 13:30 AST 39 U/L (15-37) H 12/09/18 13:30 ALT 42 U/L (12-78) 12/09/18 13:30 Alkaline Phosphatase 214 U/L (46-116) H 12/09/18 13:30 Total Protein 8.0 g/dL (6.4-8.2) 12/09/18 13:30 Albumin 3.8 g/dL (3.4-5.0) 12/09/18 13:30 Urine Color Yellow (Yellow) 12/09/18 15:45 Urine Clarity Clear 12/09/18 15:45 Urine pH 5.5 (5-8) 12/09/18 15:45 Ur Specific [place] >= 1.030 (1.005-1.025) H 12/09/18 15:45 Urine Protein 100 mg/dL (Negative) H 12/09/18 15:45 Urine Ketones Negative mg/dL (Negative) 12/09/18 15:45 Urine Blood Trace-lysed (Negative) H 12/09/18 15:45 Urine Nitrite Negative (Negative) 12/09/18 15:45 Urine Bilirubin Negative (Negative) 12/09/18 15:45 Urine Urobilinogen 0.2 EU/dL (Up TO 0.2) 12/09/18 15:45 Ur Leukocyte Esterase Negative (Negative) 12/09/18 15:45 Urine RBC 0-2 (0-2) 12/09/18 15:45 Urine WBC 0-2 HPF (0-5) 12/09/18 15:45 Ur Epithelial Cells Rare HPF (Negative) 12/09/18 15:45 Urine Crystals Negative HPF (Negative) 12/09/18 15:45 Urine Bacteria Rare HPF (Negative) 12/09/18 15:45 Urine Casts Negative LPF (Negative) 12/09/18 15:45 Urine Mucus Trace (Negative) 12/09/18 15:45 Ur Culture Indicated? No 12/09/18 15:45 Urine Glucose Negative mg/dL (Negative) 12/09/18 15:45 Specimen Type Cancelled 12/10/18 12:10 Influenza Type A RNA Cancelled 12/10/18 12:10 Influenza Type B RNA Cancelled 12/10/18 12:10 RSV RNA Qual (PCR) Cancelled 12/10/18 12:10 CXR: Limited exam. Bibasilar infiltrates and/or atelectasis.
[2018-12-10] MEDS: Nystatin 500000 UNITS/5 ML SUSP 5ML CUP PO ×2 (18:23→22:00)
[2018-12-10] MEDS: Enoxaparin 40 MG/0.4 ML SYR SC (19:40)
[2018-12-10] MEDS: FLUCONAZOLE 200 MG/100 ML BAG 100 MG IVPB (19:40)
[2018-12-10] MEDS: clonazePAM 1 MG TAB 2 MG PO (21:55)
[2018-12-10] MEDS: Simvastatin 20 MG TAB 40 MG PO (22:00)
[2018-12-10] MEDS: Acetaminophen Solution 650 MG/20.3 ML CUP PO (22:27)
--- NOTE | 2018-12-10 23:32 | DI.RAD_ITS ---
SYMPTOM/DIAGNOSIS: PICC LINE PLACEMENT. PORTABLE AP CHEST: Comparison is made with 09/08/18. The exam is limited by respiratory motion and poor pulmonary inflation. A picc line has been inserted via the left arm. The tip lies in the lower SVC versus upper right atrium. There are basilar densities which could represent atelectasis however infiltrates cannot be excluded. No pneumothorax is seen. IMPRESSION: Satisfactory position of picc line.
[2018-12-11] VITALS (66 sets, daily range): BP systolic 77–128; BP diastolic 32–63; PULSE 70–121; RESP 12–29; TEMP 37.9–38.2; O2SAT 86–97
--- NOTE | 2018-12-11 00:21 | DI.VRAD_ITS ---
EXAM: XR Chest, 1 View EXAM DATE/TIME: 12/10/2018 11:33 PM CLINICAL HISTORY: 78 years old, male; Device placement; Picc TECHNIQUE: XR of the chest, 1 view. COMPARISON: CR XR PORTABLE CHEST AP 12/10/2018 11:07 AM FINDINGS: Tubes, catheters and devices: Left-sided PICC line in place with the tip in the region of the superior vena cava. Lungs: Loss of volume of the lung bases, poor visualization of the hemidiaphragms. Opacity at the right lung base medially, seen on the prior study. Upper lung zones are clear. Pleural space: Small pleural effusions cannot be ruled out. No pneumothorax. Heart/Mediastinum: Mild cardiomegaly. Vasculature: Atherosclerotic aortic arch. Bones/joints: Degenerative changes within thoracic spine. IMPRESSION: Left-sided PICC line in place with the tip in the region of the superior vena cava. Cardiomegaly. Small opacity at the right lung base medially, possible infiltrate. Dictated and Authenticated by: Oniel Richard MD. Ordering:[facility] Elizabet Toledo MD
[2018-12-11] MEDS: LEVOFLOXACIN 750 MG/150 ML BAG 100 MG IVPB (01:12)
[2018-12-11] MEDS: CEFEPIME 2 GM in Normal Saline 100 ML IVPB (01:43)
[2018-12-11] MEDS: Hydrocortisone SOD SUC. 100 MG VIAL 50 MG IVP ×2 (04:30→10:50)
[2018-12-11] MEDS: VANCOMYCIN 1,000 MG in Normal Saline 250 ML 166 MG IVPB (05:24)
[2018-12-11] MEDS: Nystatin 500000 UNITS/5 ML SUSP 5ML CUP PO (05:57)
--- NOTE | 2018-12-11 06:00 | DI.RAD_ITS ---
SYMPTOM/DIAGNOSIS: PNEUMONIA PORTABLE AP CHEST: Comparison is made with 12/10/18. The exam is again limited by respiratory motion and poor pulmonary inflation. A picc line is seen with the tip in the lower SVC. Multiple other leads overlie the chest. There are increased basilar densities. There is a question of tiny bilateral pleural effusions. The findings could represent atelectasis versus infiltrates. IMPRESSION: Limited exam. Small bilateral pleural effusions. Bibasilar infiltrates versus atelectasis.
[2018-12-11 07:42] LABS: HCO3 18 mmol/L (22-28); pCO2 49 mmHg (34-47); pO2 55 mmHg (83-108); sO2 84 % (94-98); tCO2 17 mmol/L (22-29)
[2018-12-11 07:46] LABS: BE -10.7 mmol/L (-3-3); Site Left Radial; pH 7.17 (7.35-7.45)
[2018-12-11 07:47] LABS: FIO2 190 %
[2018-12-11 09:05] LABS: Abs Immature Grans 0.14 k/cumm (0.0-0.09); Absolute Basophil Count 0.01 k/cumm (0.0-0.2); Absolute Lymphocyte Count 2.04 k/cumm (1.2-3.4); Absolute Monocyte Count 1.58 k/cumm (0.11-0.7); Absolute Neutrophil Count 10.37 k/cumm (1.2-6.7); Basophils % 0.1; HCT 35.1 % (40.0-50.0); HGB 11.3 g/dL (13.5-17.5); Lymphocytes % 14.4; Mean Corp. HGB Concentration 32.2 g/dL (32.0-36.0); Mean Platelet Volume 10.4 fL (8.0-11.0); Monocytes % 11.2; Neutrophils % 73.3; Platelet Count 200 x1000/uL (130-400); RBC Distribution Width 15.9 % (11.8-14.1); White Blood Cell Count 14.15 k/cumm (4.4-10.8)
[2018-12-11 09:12] LABS: Anion Gap 12.6 mmol/L (3-11); BUN 46 mg/dL (7-18); CO2 20.4 mmol/L (21.0-32.0); CREATININE 3.16 mg/dL (0.70-1.30); Calcium 8.6 mg/dL (8.5-10.1); Chloride 105 mmol/L (98-107); Estimated GFR 19.11 (mL/min/1.73m2); Glucose 276 mg/dL (70-100); Magnesium 2.9 mg/dL (1.8-2.4); Potassium 3.4 mmol/L (3.5-5.1); Sodium 138 mmol/L (136-145)
[2018-12-11] MEDS: Normal Saline Flush 10 ML SYR IVP ×2 (09:12→10:59)
[2018-12-11] MEDS: Furosemide 20 MG/2 ML VIAL IVP (09:12)
--- NOTE | 2018-12-11 09:20 | MERGE_ITS ---
*[facility]* *[facility]* [address] [place] [address] Date of study: 12/11/2018 Transthoracic Echocardiography M-mode, complete 2D, complete spectral Doppler, and color Doppler *STUDY CONCLUSIONS* Summary: 1. Left ventricle: The cavity size was normal. Wall thickness was at the upper limits of normal. Systolic function was hyperdynamic. The estimated ejection fraction was 65-70%. There was no dynamic obstruction. Wall motion was normal; there were no regional wall motion abnormalities. 2. Aortic valve: Sclerosis without stenosis. 3. Left atrium: The atrium was moderately dilated. 4. Right ventricle: The cavity size was normal. Wall thickness was normal. Systolic function was hyperdynamic. 5. Pulmonary arteries: Pulmonary systolic pressure was increased, in the range of 45mm Hg to 50mm Hg. 6. Inferior vena cava: The vessel was normal in size. The respirophasic diameter changes were in the normal range (greater than or equal to 50%). 7. Pericardium, extracardiac: A pericardial effusion was identified circumferential to the heart. There was no evidence of hemodynamic compromise. There was a right pleural effusion. *PATIENT PRESENTATION* Height: 175.3cm ((69in) ) S/D Pressure: 112 / 48 Weight: 92.1kg ((202.6lb) ) BSA: 2.14m^2 Test start time: 09:30 AM. Test stop time: 10:30 AM. PERFORMING [facility] ORDERING Monty Mcneal REFERRING Monty Mcneal [employer] Diamond Louis RT (R)(CT), RDCS CONSULTING No, Local *PROCEDURE DATA* Procedure information: The patient was identified by two identifiers. This study was interpreted by [facility]. Pertinent images and digital data are archived for permanent storage and are available for subsequent review. No prior study was available for comparison. Study status: STAT. Transthoracic echocardiography. M-mode, complete 2D, complete spectral Doppler, and color Doppler. A Transthoracic Echocardiogram was performed. Scanning was performed from the parasternal, apical, subcostal, and suprasternal notch acoustic windows. Images were obtained using an [id number] cardiac ultrasound machine. Image quality was adequate. Study completion: The patient tolerated the procedure well. There were no complications. History: PMH: Evaluate LV function. *CARDIAC ANATOMY* Left ventricle: The cavity size was normal. Wall thickness was at the upper limits of normal. Systolic function was hyperdynamic. The estimated ejection fraction was 65-70%. There was no dynamic obstruction. Wall motion was normal; there were no regional wall motion abnormalities. Diastolic parameters were not diagnostic. Aortic valve: Trileaflet; mildly thickened, mildly calcified leaflets. Sclerosis without stenosis. Mobility was not restricted. Doppler: Transvalvular velocity was within the normal range. There was no stenosis. There was no significant regurgitation. VTI ratio of LVOT to aortic valve: 0.61. Valve area (VTI): 2.3cm^2. Indexed valve area (VTI): 1.1cm^2/m^2. Peak velocity ratio of LVOT to aortic valve: 0.62. Valve area (Vmax): 2.4cm^2. Indexed valve area (Vmax): 1.1cm^2/m^2. Mean velocity ratio of LVOT to aortic valve: 0.71. Valve area (Vmean): 2.7cm^2. Indexed valve area (Vmean): 1.3cm^2/m^2. Mean gradient (S): 12.7mm Hg. Peak gradient (S): 27.2mm Hg. Aorta: Aortic root: The aortic root was normal in size. Ascending aorta: The ascending aorta was normal in size. Mitral valve: Mildly to moderately calcified annulus. Mobility was not restricted. Doppler: Transvalvular velocity was within the normal range. There was no evidence for stenosis. There was trivial regurgitation. Valve area by pressure half-time: 4cm^2. Indexed valve area by pressure half-time: 1.9cm^2/m^2. Peak gradient (D): 4.2mm Hg. Left atrium: The atrium was moderately dilated. Right ventricle: The cavity size was normal. Wall thickness was normal. Systolic function was hyperdynamic. Pulmonic valve: Doppler: Transvalvular velocity was within the normal range. There was no evidence for stenosis. There was no significant regurgitation. Tricuspid valve: Structurally normal valve. Doppler: Transvalvular velocity was within the normal range. There was no evidence for stenosis. There was trivial regurgitation. Pulmonary artery: Pulmonary systolic pressure was increased, in the range of 45mm Hg to 50mm Hg. Right atrium: The atrium was normal in size. Pericardium: A pericardial effusion was identified circumferential to the heart. There was no evidence of hemodynamic compromise. Systemic veins: Inferior vena cava: Well visualized. The vessel was normal in size. The respirophasic diameter changes were in the normal range (greater than or equal to 50%). Pleura: There was a right pleural effusion. Baseline ECG: Tachycardia. Measurements Left ventricle Value Reference LV ID, ED, PLAX 5.7 cm 3.5 - 6.0 LV ID, ES, PLAX 3.2 cm 2.1 - 4.0 LV PW thickness, ED, PLAX 1.1 cm LV end-diastolic volume, 1-p A2C 75 ml LV ejection fraction, 1-p A2C 70 % LV end-diastolic volume, 1-p A4C 117 ml LV ejection fraction, 1-p A4C 62 % LV e', lateral 0.123 m/sec LV E/e', lateral 8 LV e', medial 0.138 m/sec LV E/e', medial 7 LV e', average 0.13 m/sec LV E/e', average 8 Ventricular septum Value Reference IVS thickness, ED, PLAX 1.2 cm LVOT Value Reference LVOT ID, A-P 2.2 cm LVOT area 3.8 cm^2 LVOT peak velocity, S 1.6 m/sec LVOT mean velocity, S 1.2 m/sec LVOT VTI, S 21.9 cm LVOT peak gradient, S 10.3 mm Hg LVOT mean gradient, S 6.4 mm Hg Stroke volume (SV), LVOT DP 84 ml Stroke index (SV/bsa), LVOT DP 39 ml/m^2 Aortic valve Value Reference Aortic valve peak velocity, S 2.6 m/sec Aortic valve mean velocity, S 1.69 m/sec Aortic valve VTI, S 36.0 cm Aortic mean gradient, S 12.7 mm Hg Aortic peak gradient, S 27.2 mm Hg VTI ratio, LVOT/AV 0.61 Aortic valve area, VTI 2.3 cm^2 Velocity ratio, peak, LVOT/AV 0.62 Aortic valve area, peak velocity 2.4 cm^2 Velocity ratio, mean, LVOT/AV 0.71 Aortic valve area, mean velocity 2.7 cm^2 Aortic valve area/bsa, mean velocity 1.3 cm^2/m^2 Aorta Value Reference Aortic root ID, ED 3.7 cm Ascending aorta ID, A-P, S 3.6 cm Left atrium Value Reference LA ID, A-P, ES 4.2 cm LA ID/bsa, A-P 1.9 cm/m^2 <=2.2 LA area, ES, A4C (H) 28.8 cm^2 8.8 - 23.4 LA area, ES, A2C 25 cm^2 LA volume/bsa, ES, 1-p A4C 45 ml/m^2 LA volume, ES, 2-p 94 ml LA volume/bsa, ES, 2-p 44 ml/m^2 LA/aortic root ratio 1.13 Mitral valve Value Reference Mitral E-wave peak velocity 1.02 m/sec Mitral A-wave peak velocity 0.72 m/sec Mitral deceleration time 190 ms 150 - 230 Mitral pressure half-time 55 ms Mitral peak gradient, D 4.2 mm Hg Mitral E/A ratio, peak 1.41 Mitral valve area, PHT, DP 4 cm^2 Tricuspid valve Value Reference Tricuspid regurg peak velocity 3.3 m/sec Tricuspid peak RV-RA gradient 44.6 mm Hg Right atrium Value Reference RA area, ES, A4C 16.6 cm^2 8.3 - 19.5 Legend: (L) and (H) megan values outside specified reference range. I have personally reviewed the images and have reviewed and edited the reported findings. Electronically signed by Parker Arceo 12/11/2018 11:56
[2018-12-11 09:58] LABS: Bilirubin Small (Negative); Blood Negative (Negative); Clarity Clear; Glucose Negative (Negative); Ketones Trace mg/dL (Negative); Leukocyte Esterase Negative (Negative); Nitrite Negative (Negative); Specific Gravity >= 1.030 (1.005-1.025); Urobilinogen 0.2 EU/dL (Up TO 0.2); pH 5.5 (5-8)
[2018-12-11 10:17] LABS: Epithelial Cells Negative HPF (Negative); RBC Negative (0-2); WBC 0-2 HPF (0-5)
[2018-12-11 10:18] LABS: Bacteria Negative HPF (Negative); Casts 3-5 Fine Granular LPF (Negative); Crystals Moderate Amorphous HPF (Negative); Mucus Negative (Negative)
[2018-12-11 10:19] LABS: C & S Indicated? No
[2018-12-11 10:42] LABS: Creatine Kinase 322 U/L (39-308)
[2018-12-11 10:42] LABS: HCO3 19 mmol/L (22-28); pO2 90 mmHg (83-108); sO2 95 % (94-98); tCO2 18 mmol/L (22-29)
[2018-12-11 10:46] LABS: BE -11.3 mmol/L (-3-3); FIO2 100 %; Site Left Radial; pCO2 62 mmHg (34-47); pH 7.09 (7.35-7.45)
[2018-12-11] MEDS: ACETAMINOPHEN 1,000 MG/100 ML BTL 400 MG IVPB (11:00)
[2018-12-11] MEDS: methylPREDNISolone SUCC 125 MG VIAL 60 MG IVP (11:00)
--- NOTE | 2018-12-11 11:43 | W.PM.DS.N ---
Date of service: 12/11/18 Time of Service: 11:43 DS: Diagnosis Discharge Diagnosis (1) Sepsis: Status: Acute (2) Community acquired pneumonia: Status: Acute (3) Multiorgan failure: Status: Acute (4) Acute respiratory failure with hypoxia and hypercapnia: Status: Acute (5) Toxic metabolic encephalopathy: Status: Acute (6) Metabolic acidosis: Status: Acute (7) GRICEL (acute kidney injury): Status: Acute (8) Radiographic contrast agent nephropathy: Status: Acute (9) Oropharyngeal candidiasis: Status: Acute (10) Neuroendocrine cancer: Status: Chronic (11) Atherosclerotic peripheral vascular disease: Status: Chronic (12) Essential hypertension: Status: Chronic (13) Prostate cancer: Status: Inactive (14) Liver metastasis: Status: Chronic (15) Hyperlipidemia: Status: Chronic (16) Peripheral neuropathy: Status: Chronic (17) Gout: Status: Chronic (18) Steroid-induced hyperglycemia: Status: Acute (19) Hypokalemia: Status: Acute (20) Obstructive sleep apnea: Status: Chronic (21) Pulmonary hypertension: Status: Acute (22) Acute CHF: Status: Acute Discharge Plan Disposition Patient Disposition: [facility] Condition: Critical Discharge Details Reason For Visit: PNEUMONIA Admit Date/Time: 12/09/18 18:18 Admit Provider: Tre Mcneal Attending Provider: Tre Mcneal [facility] Hospital Course: Mr Whiteside is a 78 year old male with PMHx of 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 PE was ruled out by CTA of the chest. He was admitted to medical surgical floor with IV azithromycin, cefepime, and vancomycin, as well as IV steroids and nebs. Unfortunately, his oxygen requirements grew rapidly throughout his hospital stay, with transfer to the ICU on 12/10/18 for humidified high flow nasal canula. As of the morning of 12/11/18, the patient is encephalopathic, acidotic on ABG with predominant metabolic acidosis, pH of 7.1, and his creatinine has doubled to 3.16 from 1.55 on admission. There is evidence of fluid overload. He was being tried on lasix drip, but it had to be stopped as he was just intubated, and post intubation his blood pressures are low, requiring norepinephrine. He requires a higher level of care than [facility] is able to provide, including involvement of pulmonology/critical care, nephrology, and oncology. He was [place] [facility] [place] Diaz. A discussion was had with family re grave prognosis of current disease - the family clearly verbalized that they would like us to do everything we can to try to help the patient, including transfer. He remains full code. We appreciate assistance of our [facility] [place] and wish the patient well. Home Meds and New Rx's Prescriptions: New ipratropium-albuterol 0.5 mg-3 mg(2.5 mg base)/3 mL Solution For Nebulization 3 ml UPD Q6H PRN PRNQty: 0 RF: 0 albuterol sulfate 2.5 mg /3 mL (0.083 %) Solution For Nebulization 2.5 mg UPD Q2H PRN PRNQty: 0 RF: 0 cefepime 2 gram recon soln 2 gm IV Q24H Qty: 1 RF: 0 pantoprazole [Protonix] 40 mg Recon Soln 40 mg IVP Q24H Qty: 0 RF: 0 enoxaparin [Lovenox] 30 mg/0.3 mL Syringe 30 mg subcut Q24H Qty: 0 RF: 0 oseltamivir [Tamiflu] 30 mg Capsule 30 mg Feeding Tube DAILY Qty: 0 RF: 0 Solu-Medrol (PF) 125 mg/2 mL Recon Soln 60 mg IVP Q6H Qty: 0 RF: 0 fluconazole in NaCl (iso-osm) 100 mg/50 mL piggyback 100 mg IV Q24H Qty: 50 RF: 0 vancomycin in 0.9 % sodium chl 1 gram/200 mL piggyback 1 gm IV Q18H Qty: 1200 RF: 0 levofloxacin 250 mg/10 mL solution 250 mg PO Q48H Qty: 100 RF: 0 norepinephrine bitartrate-D5W 4 mg/500 mL (8 mcg/mL) solution See Rx Instructions .ROUTE .COMPLEX Qty: 6000 RF: 0 Discontinued simvastatin 20 MG tablet 40 mg PO DAILY RF: 0 lisinopril 40 MG tablet 5 mg PO DAILY RF: 0 cilostazol 100 MG tablet 100 mg PO BID RF: 0 allopurinol 100 MG tablet 675 mg PO DAILY RF: 0 gabapentin 300 MG capsule 1,200 mg PO BID RF: 0 clonazepam 1 MG tablet 2 mg PO HS RF: 0 clopidogrel [Plavix] 75 mg Tablet 75 mg PO DAILY RF: 0 metoprolol succinate 25 mg Tablet Extended Release 24 Hr 25 mg PO DIRECTED RF: 0 colchicine 0.6 mg Capsule 0.6 mg PO DAILY RF: 0 Afinitor 10 mg Tablet 10 mg PO DAILY RF: 0 Discharge Instructions Activity:: bedrest Diet:: NPO Discharge Orders Discharge Orders: Discharge Order (Routine); Ordered 12/11/18 Ordered By: Rosa M Argueta Exam Narrative Exam Narrative: General: intubated, sedated, prior to this, arousable to voice HEENT: eyes closed, ET tube in place Heart: RRR, tachycardic Lungs: Rhonchi and rales B GI: abdomen soft, nontender, nondistended Extremities: trace edema, no clubbing or cyanosis BLE's DS: Data Vitals/I&O Vitals and I&O: Vital Signs Temperature 38 C H 12/11/18 11:23 Temperature Source Temporal Artery Scan 12/11/18 11:23 Pulse 109 H 12/11/18 11:01 Pulse Rhythm Regular 12/10/18 08:55 Pulse 114 H 12/11/18 11:01 Respiratory Rate 27 H 12/11/18 11:01 Respiratory Effort 12/11/18 00:05 Respiratory Depth Normal 12/11/18 00:05 Respiratory Pattern Tachypnea 12/11/18 00:05 Blood Pressure 105/42 L 12/11/18 11:01 Blood Pressure Mean 55 12/11/18 11:01 Blood Pressure Position Supine 12/11/18 00:05 Pulse Oximetry 94 L 12/11/18 11:01 Oxygen Delivery Method Bi-pap 12/11/18 10:35 Oxygen Flow Rate 30 12/11/18 03:00 Fraction of Inspired Oxygen (FIO2) 100 12/11/18 10:35 Pain Level 0 12/11/18 03:00 Intake & Output 12/10/18 12/10/18 12/11/18 11:59 23:59 11:59 Intake Total 3094.00 / 4924.00 1830 / 4924.00 600 / 600 Output Total 200 / 580 380 / 580 575 / 575 Balance 2894.00 / 4344.00 1450 / 4344.00 25 / 25 Weight 91.1 kg 92.3 kg Intake: IV 3094.00 / 4444.00 1350 / 4444.00 600 / 600 Oral 480 / 480 Output: Urine 200 / 200 575 / 575 Stool 330 / 330 Emesis 50 / 50 Other: Urine Color Dark Chano Dark Chano Urine Appearance Clear Clear Urine Odor Normal None Comment large amount inc on bedpad upon transfer to ICU No void at this time. Voided 125cc clear, dark chano urine. Stool Size Moderate Stool Characteristics Liquid Brown Emesis Description Undigested Food Voiding Methods Incontinent Urinal Completed studies during hospitalization [Text1]: CXR: Limited exam. Small bilateral pleural effusions. Bibasilar infiltrates versus atelectasis. Labs on day of discharge: Labs from last 24 hours 12/11/18 12/11/18 12/11/18 12:00 11:40 10:42 WBC RBC Hgb Hct MCV MCH MCHC RDW Plt Count MPV Immature Gran % Neutrophils % Lymphocytes % Monocytes % Eosinophils % Basophils % Absolute Neutrophils Absolute Lymphocytes Absolute Monocytes Absolute Eosinophils Absolute Basophils Sample Site Pending Left radial pCO2 Pending 62 H* pO2 Pending 90 O2 Saturation Pending 95 ABG pH Pending 7.09 L* ABG HCO3 Pending 19 L ABG Total CO2 Pending 18 L ABG Base Excess Pending -11.3 L FiO2 100 Sodium Potassium Chloride Carbon Dioxide Anion Gap BUN Creatinine Estimated GFR/1.73 m2 Glucose Calcium Magnesium Creatine Kinase Urine Color Urine Clarity Urine pH Ur Specific Larimore Urine Protein Urine Ketones Urine Blood Urine Nitrite Urine Bilirubin Urine Urobilinogen Ur Leukocyte Esterase Urine RBC Urine WBC Ur Epithelial Cells Urine Crystals Urine Bacteria Urine Casts Urine Mucus Urine Other Ur Culture Indicated? Urine Glucose Specimen Type Random Vancomycin Pending Influenza Type A RNA Influenza Type B RNA Legionella Source Legionella Reprt Status L.pneumophila Antibody Legionella Final Result M. pneumoniae Source M. pneumoniae (PCR) RSV RNA Qual (PCR) Miscellaneous Test 12/11/18 12/11/18 12/11/18 09:04 08:42 08:42 WBC 14.15 H D RBC 3.90 L Hgb 11.3 L Hct 35.1 L MCV 90.0 MCH 29.0 MCHC 32.2 RDW 15.9 H Plt Count 200 MPV 10.4 Immature Gran % 1.0 Neutrophils % 73.3 Lymphocytes % 14.4 Monocytes % 11.2 Eosinophils % 0.0 Basophils % 0.1 Absolute Neutrophils 10.37 H Absolute Lymphocytes 2.04 Absolute Monocytes 1.58 H Absolute Eosinophils 0.00 Absolute Basophils 0.01 Sample Site pCO2 pO2 O2 Saturation ABG pH ABG HCO3 ABG Total CO2 ABG Base Excess FiO2 Sodium 138 Potassium 3.4 L Chloride 105 Carbon Dioxide 20.4 L Anion Gap 12.6 H BUN 46 H D Creatinine 3.16 H D Estimated GFR/1.73 m2 19.11 Glucose 276 H Calcium 8.6 Magnesium 2.9 H Creatine Kinase 322 H Urine Color Yellow Urine Clarity Clear Urine pH 5.5 Ur Specific Larimore >= 1.030 H Urine Protein 30 H Urine Ketones Trace H Urine Blood Negative Urine Nitrite Negative Urine Bilirubin Small H Urine Urobilinogen 0.2 Ur Leukocyte Esterase Negative Urine RBC Negative Urine WBC 0-2 Ur Epithelial Cells Negative Urine Crystals Moderate amorphous Urine Bacteria Negative Urine Casts 3-5 fine granular Urine Mucus Negative Urine Other Ur Culture Indicated? No Urine Glucose Negative Specimen Type Random Vancomycin Influenza Type A RNA Influenza Type B RNA Legionella Source Legionella Reprt Status L.pneumophila Antibody Legionella Final Result M. pneumoniae Source M. pneumoniae (PCR) RSV RNA Qual (PCR) Miscellaneous Test 12/11/18 12/11/18 12/10/18 07:38 07:25 23:28 WBC RBC Hgb Hct MCV MCH MCHC RDW Plt Count MPV Immature Gran % Neutrophils % Lymphocytes % Monocytes % Eosinophils % Basophils % Absolute Neutrophils Absolute Lymphocytes Absolute Monocytes Absolute Eosinophils Absolute Basophils Sample Site Left radial Pending pCO2 49 H Pending pO2 55 L Pending O2 Saturation 84 L Pending ABG pH 7.17 L* Pending ABG HCO3 18 L Pending ABG Total CO2 17 L Pending ABG Base Excess -10.7 L Pending FiO2 190 Sodium Potassium Chloride Carbon Dioxide Anion Gap BUN Creatinine Estimated GFR/1.73 m2 Glucose Calcium Magnesium Creatine Kinase Urine Color Urine Clarity Urine pH Ur Specific Lar[place] Urine Protein Urine Ketones Urine Blood Urine Nitrite Urine Bilirubin Urine Urobilinogen Ur Leukocyte Esterase Urine RBC Urine WBC Ur Epithelial Cells Urine Crystals Urine Bacteria Urine Casts Urine Mucus Urine Other Ur Culture Indicated? Urine Glucose Specimen Type Random Vancomycin Influenza Type A RNA Influenza Type B RNA Legionella Source Pending Legionella Reprt Status Pending L.pneumophila Antibody Pending Legionella Final Result Pending M. pneumoniae Source Pending M. pneumoniae (PCR) Pending RSV RNA Qual (PCR) Miscellaneous Test 12/10/18 12/10/18 12:10 12:10 WBC RBC Hgb Hct MCV MCH MCHC RDW Plt Count MPV Immature Gran % Neutrophils % Lymphocytes % Monocytes % Eosinophils % Basophils % Absolute Neutrophils Absolute Lymphocytes Absolute Monocytes Absolute Eosinophils Absolute Basophils Sample Site pCO2 pO2 O2 Saturation ABG pH ABG HCO3 ABG Total CO2 ABG Base Excess FiO2 Sodium Potassium Chloride Carbon Dioxide Anion Gap BUN Creatinine Estimated GFR/1.73 m2 Glucose Calcium Magnesium Creatine Kinase Urine Color Urine Clarity Urine pH Ur Specific [place] Urine Protein Urine Ketones Urine Blood Urine Nitrite Urine Bilirubin Urine Urobilinogen Ur Leukocyte Esterase Urine RBC Urine WBC Ur Epithelial Cells Urine Crystals Urine Bacteria Urine Casts Urine Mucus Urine Other Ur Culture Indicated? Urine Glucose Specimen Type Cancelled Random Vancomycin Influenza Type A RNA Cancelled Influenza Type B RNA Cancelled Legionella Source Legionella Reprt Status L.pneumophila Antibody Legionella Final Result M. pneumoniae Source M. pneumoniae (PCR) RSV RNA Qual (PCR) Cancelled Miscellaneous Test Pending 12/10/18 23:41 Blood Blood Culture - Pending 12/10/18 23:30 Blood Blood Culture - Pending Preliminary micro results at discharge 12/10/18 12:20 Sputum Culture - Preliminary Sputum Normal Annemarie 12/10/18 23:41 Blood Culture - Pending Blood 12/10/18 23:30 Blood Culture - Pending Blood 12/09/18 15:34 Blood Culture - Preliminary Blood NO GROWTH 24 HOURS 12/09/18 14:00 Blood Culture - Preliminary Blood NO GROWTH 24 HOURS 12/09/18 13:30 Blood Culture - Preliminary Blood NO GROWTH 24 HOURS [facility] Medical History Prostate cancer (Inactive) Liver metastasis (Chronic) Neuroendocrine cancer (Chronic) Gout (Chronic) Essential hypertension (Chronic) Peripheral neuropathy (Chronic) Hyperlipidemia (Chronic) Atherosclerotic peripheral vascular disease (Chronic) Surgical History S/P prostatectomy (Resolved) Social History marital status: lives independently: Yes Smoking/Tobacco Use Status: Never alcohol intake: current alcohol intake frequency: 0-2 drinks per day Alcohol type: wine
--- NOTE | 2018-12-11 11:54 | DSE_ITS ---
Date of service: 12/11/18 Time of Service: 11:43 DS: Diagnosis Discharge Diagnosis (1) Sepsis: Status: Acute (2) Community acquired pneumonia: Status: Acute (3) Multiorgan failure: Status: Acute (4) Acute respiratory failure with hypoxia and hypercapnia: Status: Acute (5) Toxic metabolic encephalopathy: Status: Acute (6) Metabolic acidosis: Status: Acute (7) GRICEL (acute kidney injury): Status: Acute (8) Radiographic contrast agent nephropathy: Status: Acute (9) Oropharyngeal candidiasis: Status: Acute (10) Neuroendocrine cancer: Status: Chronic (11) Atherosclerotic peripheral vascular disease: Status: Chronic (12) Essential hypertension: Status: Chronic (13) Prostate cancer: Status: Inactive (14) Liver metastasis: Status: Chronic (15) Hyperlipidemia: Status: Chronic (16) Peripheral neuropathy: Status: Chronic (17) Gout: Status: Chronic (18) Steroid-induced hyperglycemia: Status: Acute (19) Hypokalemia: Status: Acute (20) Obstructive sleep apnea: Status: Chronic (21) Pulmonary hypertension: Status: Acute (22) Acute CHF: Status: Acute Discharge Plan Disposition Patient Disposition: [facility] Condition: Critical Discharge Details Reason For Visit: PNEUMONIA Admit Date/Time: 12/09/18 18:18 Admit Provider: Tre Mcneal Attending Provider: Tre Mcneal [facility] Hospital Course: Mr Whiteside is a 78 year old male with PMHx of 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 ED on 12/09/18 with CAP. PE was ruled out by CTA of the chest. He was admitted to medical surgical floor with IV azithromycin, cefepime, and vancomycin, as well as IV steroids and nebs. Unfortunately, his oxygen requirements grew rapidly throughout his hospital stay, with transfer to the ICU on 12/10/18 for humidified high flow nasal canula. As of the morning of 12/11/18, the patient is encephalopathic, acidotic on ABG with predominant metabolic acidosis, pH of 7.1, and his creatinine has doubled to 3.16 from 1.55 on admission. There is evidence of fluid overload. He was being tried on lasix drip, but it had to be stopped as he was just intubated, and post intubation his blood pressures are low, requiring norepinephrine. He requires a higher level of care than [facility] is able to provide, including involvement of pulmonology/critical care, nephrology, and oncology. He was accepted to [facility] ICU by Dr Diaz. A discussion was had with family re grave prognosis of current disease - the family clearly verbalized that they would like us to do everything we can to try to help the patient, including transfer. He remains full code. We appreciate assistance of our [facility] colleagues and wish the patient well. Home Meds and New Rx's Prescriptions: New ipratropium-albuterol 0.5 mg-3 mg(2.5 mg base)/3 mL Solution For Nebulization 3 ml UPD Q6H PRN PRNQty: 0 RF: 0 albuterol sulfate 2.5 mg /3 mL (0.083 %) Solution For Nebulization 2.5 mg UPD Q2H PRN PRNQty: 0 RF: 0 cefepime 2 gram recon soln 2 gm IV Q24H Qty: 1 RF: 0 pantoprazole [Protonix] 40 mg Recon Soln 40 mg IVP Q24H Qty: 0 RF: 0 enoxaparin [Lovenox] 30 mg/0.3 mL Syringe 30 mg subcut Q24H Qty: 0 RF: 0 oseltamivir [Tamiflu] 30 mg Capsule 30 mg Feeding Tube DAILY Qty: 0 RF: 0 Solu-Medrol (PF) 125 mg/2 mL Recon Soln 60 mg IVP Q6H Qty: 0 RF: 0 fluconazole in NaCl (iso-osm) 100 mg/50 mL piggyback 100 mg IV Q24H Qty: 50 RF: 0 vancomycin in 0.9 % sodium chl 1 gram/200 mL piggyback 1 gm IV Q18H Qty: 1200 RF: 0 levofloxacin 250 mg/10 mL solution 250 mg PO Q48H Qty: 100 RF: 0 norepinephrine bitartrate-D5W 4 mg/500 mL (8 mcg/mL) solution See Rx Instructions .ROUTE .COMPLEX Qty: 6000 RF: 0 Discontinued simvastatin 20 MG tablet 40 mg PO DAILY RF: 0 lisinopril 40 MG tablet 5 mg PO DAILY RF: 0 cilostazol 100 MG tablet 100 mg PO BID RF: 0 allopurinol 100 MG tablet 675 mg PO DAILY RF: 0 gabapentin 300 MG capsule 1,200 mg PO BID RF: 0 clonazepam 1 MG tablet 2 mg PO HS RF: 0 clopidogrel [Plavix] 75 mg Tablet 75 mg PO DAILY RF: 0 metoprolol succinate 25 mg Tablet Extended Release 24 Hr 25 mg PO DIRECTED RF: 0 colchicine 0.6 mg Capsule 0.6 mg PO DAILY RF: 0 Afinitor 10 mg Tablet 10 mg PO DAILY RF: 0 Discharge Instructions Activity:: bedrest Diet:: NPO Discharge Orders Discharge Orders: Discharge Order (Routine); Ordered 12/11/18 Ordered By: Rosa M Argueta Exam Narrative Exam Narrative: General: intubated, sedated, prior to this, arousable to voice HEENT: eyes closed, ET tube in place Heart: RRR, tachycardic Lungs: Rhonchi and rales B GI: abdomen soft, nontender, nondistended Extremities: trace edema, no clubbing or cyanosis BLE's DS: Data Vitals/I&O Vitals and I&O: Vital Signs Temperature 38 C H 12/11/18 11:23 Temperature Source Temporal Artery Scan 12/11/18 11:23 Pulse 109 H 12/11/18 11:01 Pulse Rhythm Regular 12/10/18 08:55 Pulse 114 H 12/11/18 11:01 Respiratory Rate 27 H 12/11/18 11:01 Respiratory Effort 12/11/18 00:05 Respiratory Depth Normal 12/11/18 00:05 Respiratory Pattern Tachypnea 12/11/18 00:05 Blood Pressure 105/42 L 12/11/18 11:01 Blood Pressure Mean 55 12/11/18 11:01 Blood Pressure Position Supine 12/11/18 00:05 Pulse Oximetry 94 L 12/11/18 11:01 Oxygen Delivery Method Bi-pap 12/11/18 10:35 Oxygen Flow Rate 30 12/11/18 03:00 Fraction of Inspired Oxygen (FIO2) 100 12/11/18 10:35 Pain Level 0 12/11/18 03:00 Intake & Output 12/10/18 12/10/18 12/11/18 11:59 23:59 11:59 Intake Total 3094.00 / 4924.00 1830 / 4924.00 600 / 600 Output Total 200 / 580 380 / 580 575 / 575 Balance 2894.00 / 4344.00 1450 / 4344.00 25 / 25 Weight 91.1 kg 92.3 kg Intake: IV 3094.00 / 4444.00 1350 / 4444.00 600 / 600 Oral 480 / 480 Output: Urine 200 / 200 575 / 575 Stool 330 / 330 Emesis 50 / 50 Other: Urine Color Dark Chano Dark Chano Urine Appearance Clear Clear Urine Odor Normal None Comment large amount inc on bedpad upon transfer to ICU No void at this time. Voided 125cc clear, dark chano urine. Stool Size Moderate Stool Characteristics Liquid Brown Emesis Description Undigested Food Voiding Methods Incontinent Urinal Completed studies during hospitalization [Text1]: CXR: Limited exam. Small bilateral pleural effusions. Bibasilar infiltrates versus atelectasis. Labs on day of discharge: Labs from last 24 hours 12/11/18 12/11/18 12/11/18 12:00 11:40 10:42 WBC RBC Hgb Hct MCV MCH MCHC RDW Plt Count MPV Immature Gran % Neutrophils % Lymphocytes % Monocytes % Eosinophils % Basophils % Absolute Neutrophils Absolute Lymphocytes Absolute Monocytes Absolute Eosinophils Absolute Basophils Sample Site Pending Left radial pCO2 Pending 62 H* pO2 Pending 90 O2 Saturation Pending 95 ABG pH Pending 7.09 L* ABG HCO3 Pending 19 L ABG Total CO2 Pending 18 L ABG Base Excess Pending -11.3 L FiO2 100 Sodium Potassium Chloride Carbon Dioxide Anion Gap BUN Creatinine Estimated GFR/1.73 m2 Glucose Calcium Magnesium Creatine Kinase Urine Color Urine Clarity Urine pH Ur Specific [place] Urine Protein Urine Ketones Urine Blood Urine Nitrite Urine Bilirubin Urine Urobilinogen Ur Leukocyte Esterase Urine RBC Urine WBC Ur Epithelial Cells Urine Crystals Urine Bacteria Urine Casts Urine Mucus Urine Other Ur Culture Indicated? Urine Glucose Specimen Type Random Vancomycin Pending Influenza Type A RNA Influenza Type B RNA Legionella Source Legionella Reprt Status L.pneumophila Antibody Legionella Final Result M. pneumoniae Source M. pneumoniae (PCR) RSV RNA Qual (PCR) Miscellaneous Test 12/11/18 12/11/18 12/11/18 09:04 08:42 08:42 WBC 14.15 H D RBC 3.90 L Hgb 11.3 L Hct 35.1 L MCV 90.0 MCH 29.0 MCHC 32.2 RDW 15.9 H Plt Count 200 MPV 10.4 Immature Gran % 1.0 Neutrophils % 73.3 Lymphocytes % 14.4 Monocytes % 11.2 Eosinophils % 0.0 Basophils % 0.1 Absolute Neutrophils 10.37 H Absolute Lymphocytes 2.04 Absolute Monocytes 1.58 H Absolute Eosinophils 0.00 Absolute Basophils 0.01 Sample Site pCO2 pO2 O2 Saturation ABG pH ABG HCO3 ABG Total CO2 ABG Base Excess FiO2 Sodium 138 Potassium 3.4 L Chloride 105 Carbon Dioxide 20.4 L Anion Gap 12.6 H BUN 46 H D Creatinine 3.16 H D Estimated GFR/1.73 m2 19.11 Glucose 276 H Calcium 8.6 Magnesium 2.9 H Creatine Kinase 322 H Urine Color Yellow Urine Clarity Clear Urine pH 5.5 Ur Specific [place] >= 1.030 H Urine Protein 30 H Urine Ketones Trace H Urine Blood Negative Urine Nitrite Negative Urine Bilirubin Small H Urine Urobilinogen 0.2 Ur Leukocyte Esterase Negative Urine RBC Negative Urine WBC 0-2 Ur Epithelial Cells Negative Urine Crystals Moderate amorphous Urine Bacteria Negative Urine Casts 3-5 fine granular Urine Mucus Negative Urine Other Ur Culture Indicated? No Urine Glucose Negative Specimen Type Random Vancomycin Influenza Type A RNA Influenza Type B RNA Legionella Source Legionella Reprt Status L.pneumophila Antibody Legionella Final Result M. pneumoniae Source M. pneumoniae (PCR) RSV RNA Qual (PCR) Miscellaneous Test 12/11/18 12/11/18 12/10/18 07:38 07:25 23:28 WBC RBC Hgb Hct MCV MCH MCHC RDW Plt Count MPV Immature Gran % Neutrophils % Lymphocytes % Monocytes % Eosinophils % Basophils % Absolute Neutrophils Absolute Lymphocytes Absolute Monocytes Absolute Eosinophils Absolute Basophils Sample Site Left radial Pending pCO2 49 H Pending pO2 55 L Pending O2 Saturation 84 L Pending ABG pH 7.17 L* Pending ABG HCO3 18 L Pending ABG Total CO2 17 L Pending ABG Base Excess -10.7 L Pending FiO2 190 Sodium Potassium Chloride Carbon Dioxide Anion Gap BUN Creatinine Estimated GFR/1.73 m2 Glucose Calcium Magnesium Creatine Kinase Urine Color Urine Clarity Urine pH Ur Specific [place] Urine Protein Urine Ketones Urine Blood Urine Nitrite Urine Bilirubin Urine Urobilinogen Ur Leukocyte Esterase Urine RBC Urine WBC Ur Epithelial Cells Urine Crystals Urine Bacteria Urine Casts Urine Mucus Urine Other Ur Culture Indicated? Urine Glucose Specimen Type Random Vancomycin Influenza Type A RNA Influenza Type B RNA Legionella Source Pending Legionella Reprt Status Pending L.pneumophila Antibody Pending Legionella Final Result Pending M. pneumoniae Source Pending M. pneumoniae (PCR) Pending RSV RNA Qual (PCR) Miscellaneous Test 12/10/18 12/10/18 12:10 12:10 WBC RBC Hgb Hct MCV MCH MCHC RDW Plt Count MPV Immature Gran % Neutrophils % Lymphocytes % Monocytes % Eosinophils % Basophils % Absolute Neutrophils Absolute Lymphocytes Absolute Monocytes Absolute Eosinophils Absolute Basophils Sample Site pCO2 pO2 O2 Saturation ABG pH ABG HCO3 ABG Total CO2 ABG Base Excess FiO2 Sodium Potassium Chloride Carbon Dioxide Anion Gap BUN Creatinine Estimated GFR/1.73 m2 Glucose Calcium Magnesium Creatine Kinase Urine Color Urine Clarity Urine pH Ur Specific [place] Urine Protein Urine Ketones Urine Blood Urine Nitrite Urine Bilirubin Urine Urobilinogen Ur Leukocyte Esterase Urine RBC Urine WBC Ur Epithelial Cells Urine Crystals Urine Bacteria Urine Casts Urine Mucus Urine Other Ur Culture Indicated? Urine Glucose Specimen Type Cancelled Random Vancomycin Influenza Type A RNA Cancelled Influenza Type B RNA Cancelled Legionella Source Legionella Reprt Status L.pneumophila Antibody Legionella Final Result M. pneumoniae Source M. pneumoniae (PCR) RSV RNA Qual (PCR) Cancelled Miscellaneous Test Pending 12/10/18 23:41 Blood Blood Culture - Pending 12/10/18 23:30 Blood Blood Culture - Pending Preliminary micro results at discharge 12/10/18 12:20 Sputum Culture - Preliminary Sputum Normal Annemarie 12/10/18 23:41 Blood Culture - Pending Blood 12/10/18 23:30 Blood Culture - Pending Blood 12/09/18 15:34 Blood Culture - Preliminary Blood NO GROWTH 24 HOURS 12/09/18 14:00 Blood Culture - Preliminary Blood NO GROWTH 24 HOURS 12/09/18 13:30 Blood Culture - Preliminary Blood NO GROWTH 24 HOURS [facility] Medical History Prostate cancer (Inactive) Liver metastasis (Chronic) Neuroendocrine cancer (Chronic) Gout (Chronic) Essential hypertension (Chronic) Peripheral neuropathy (Chronic) Hyperlipidemia (Chronic) Atherosclerotic peripheral vascular disease (Chronic) Surgical History S/P prostatectomy (Resolved) Social History marital status: lives independently: Yes Smoking/Tobacco Use Status: Never alcohol intake: current alcohol intake frequency: 0-2 drinks per day Alcohol type: wine
[2018-12-11] MEDS: PROPOFOL 1,000 MG/100 ML BTL 27.69 MG IV (12:14)
--- NOTE | 2018-12-11 12:41 | DI.RAD_ITS ---
SYMPTOMS/DIAGNOSIS: CONFIRM ET TUBE PLACEMENT PORTABLE SUPINE CHEST: Comparison is made with exam performed at 6:40 a.m. the same day. An endotracheal tube has been inserted. The tip lies at the level of the clavicles. Increased densities are again noted at the lung bases. A PICC line is again noted, unchanged. IMPRESSION: Satisfactory placement of endotracheal tube.
--- NOTE | 2018-12-11 12:59 | PDOC.CMDIS ---
- If Service Date Differs Date of service: 12/11/18 Time of Service: 12:59 LACE Index Scoring Tool - Questions: Length of Stay (in days): 3 Acuity (Admit via E.D.?): Yes Comorbidities: Metastatic Solid Tumor E.D. Visits: 1 - Answers: Total Score: 12 Risk of Readmission: High Risk Care Management Discharge Reason for Hospitalization: Pneumonia. Discharge Plan: Marjan is being transferred via EMS to [facility] ICU. Patient/Family Education Needs: Discharge education, any limitations, and follow up plan of care. Ask Me Three discussion.
--- NOTE | 2018-12-11 13:01 | PDOC.ANES ---
Date of service: 12/11/18 Time of Service: 13:01 Anesthesia Note Report Anesthesia Note: Requested by hospitalist to intubate patient given worsening respiratory failure. Pt. admitted for community acquired pneumonia, also noted to have metastatic lung cancer and probable sepsis. Given respiratory distress/failure, he was started on BiPAP this morning without clinical improvement. Echo performed showing pericardial effusion as well as hyperdynamic motion with EF 70% without significant valve disease, but with pericardial effusion and right pleural effusion. Pt. is able to open eyes to voice but is otherwise unresponsive. Head of bed at 30-45 drgrees and BiPAP continued as preoxygenation with FiO2 100%. Airway equipment prepared as well as medications and suction and BVM at patient head. Hospitalist verbalized concern for airway edema and therefore glidescope and fiber optic scope present. Pt. given at 1208 25mg Ketamine as well as 20mg propofol. Glidescope #4 blade introduced with glottic view grade I with noted reddening of glottic/hypopharynx tissues. #8.0 ETT attempted to pass but then noted cords closed. 140mg Succinylcholine given IV and pt. ventilated 2 person BVM on 100% FiO2 maintaining SpO2 90-92%. After relaxation, Attempt #2 with glidescope #4 blade with grade I view, ETT with difficulty passing, oral secretions (thick mucous) suctioned and Fiberoptic scope passed into glottic opening into trachea and 8.0 ETT passed with ease and secured at 22cm at teeth. Cuff inflated with minimally occlusive volume, +ETCO2, noted and ETT secured with commercial device by RT. Propofol started for maintenance at 50mcg/kg/min and given hypotension, titrated down to 20mcg/kg/min. Given SpO2 after tube placement of 86%-88% and some noted poor vent synchrony, 50mg rocuronium given with good effect. Right Nare 16 Fr NG tube placed and secured with gastric contents out at 65cm to low continuous suction. Divided doses of phenylephrine given to a total dose of 400mcg IV given with minimal effect. Levophed bolus given 16mcg x 2 with some effect and drip started at 30mcg/min with good effect MAP 55 with goal of 60. Discussed adding vasopressin with hospitalist and at this point report given to hospitalist who assumed full patient care.
--- NOTE | 2018-12-11 13:02 | CMDISCH_ITS ---
- If Service Date Differs Date of service: 12/11/18 Time of Service: 12:59 LACE Index Scoring Tool - Questions: Length of Stay (in days): 3 Acuity (Admit via E.D.?): Yes Comorbidities: Metastatic Solid Tumor E.D. Visits: 1 - Answers: Total Score: 12 Risk of Readmission: High Risk Care Management Discharge Reason for Hospitalization: Pneumonia. Discharge Plan: Marjan is being transferred via EMS to [facility] ICU. Patient/Family Education Needs: Discharge education, any limitations, and follow up plan of care. Ask Me Three discussion.
--- NOTE | 2018-12-11 15:40 | CHAPLAIN ---
I spent most of the morning with Marjan and his , Corrine, as Marjan's condition became more serious and was eventually intubated and transferred to [facility]. It was important to Corrine that Marjan receive the anointing of the sick from a quahogger before Marjan was intubated. Fr. Aguilar arrived just prior to Marjan being intubated. Corrine said that Marjan has made her promise that he would receive the anointing of the sick. Marjan was raised Rastafarian. Corrine also had a prayer for the [place] that she recited. Corrine and I also prayed with Marjan before Fr. Moise arrived. Dr. Willis spoke with Corrine and explained that [facility] doctors was wanted Corrine to know that it is possible that Marjan may not be able to be taken off the vent successfully. Corrine said she understood this and that she also knew it is possible he could not matter what measures are taken. Corrine said the oncologist told Marjan five years ago the he would live tree to five years. She agreed to have Marjan intubated and transferred to [facility]. the [facility] helicopter lifet [facility], and then turned around because of weather conditions and the ground crew traveled to picked [employer] sewing machine operator [place]. About an hour before the ground crew arrived, Corrine and Marjan's son Raphael arrived. He drove up from [place]. He stayed with Corrine and then traveled to [facility] with her. There are three more siblings and Raphael has been in touch with them. Marjan and Corrine celebrated their 60th anniversary yesterday.
[2018-12-13 20:27] LABS: Mycoplasma Pneumoniae PCR Negative; Specimen source SPUTUM
== END 2018-12-11 13:50 | disposition short-term general hospital (02) | DRG 871 ==
LOC: ER 19:10 → MS 12-10 07:50 → ICU 12-11 10:29 → MS 12-23 12:12
PROVIDERS: Admitting Provider Internal Medicine; Emergency Provider Student in an Organized Health Care Education/Training Program; Visit Provider Internal Medicine
DX: A41.9 Sepsis, unspecified organism (principal); J18.9 Pneumonia, unspecified organism; J96.02 Acute respiratory failure with hypercapnia; J96.01 Acute respiratory failure with hypoxia; G92 Toxic encephalopathy; E87.2 Acidosis; N17.9 Acute kidney failure, unspecified; B37.0 Candidal stomatitis; B37.89 Other sites of candidiasis; C7A.8 Other malignant neuroendocrine tumors; C7B.8 Other secondary neuroendocrine tumors; J98.11 Atelectasis; I50.9 Heart failure, unspecified; N14.1 Nephropathy induced by other drugs, medicaments and biological substances; I73.9 Peripheral vascular disease, unspecified; Z79.02 Long term (current) use of antithrombotics/antiplatelets; Z45.2 Encounter for adjustment and management of vascular access device; I10 Essential (primary) hypertension; E78.5 Hyperlipidemia, unspecified; G62.9 Polyneuropathy, unspecified; E87.6 Hypokalemia; R73.9 Hyperglycemia, unspecified; T38.0X5A Adverse effect of glucocorticoids and synthetic analogues, initial encounter; G47.33 Obstructive sleep apnea (adult) (pediatric); I27.20 Pulmonary hypertension, unspecified; E87.70 Fluid overload, unspecified
CPT/HCPCS: 36415; 36569; 36592; 70491; 71045; 71275; 80048; 80053; 82550; 82805; 86713; 87040; 87252; 87449; 87631; 87880; 93306; 96361; 96365; 96366; 96368; 99223; 99239; 99285; 99291; J1650; 36600; 71046; 80202; 81003; 81015; 83036; 83605; 83735; 85025; 87070; 87081; 87205; 87581; 94002; 94640; J0131; J0456; J1450; J1720; J1941; J1956; J2930; J3475; J3480; J3490; J7613; J7620; Q9967